=== PATIENT | female | born 1950 | race Hispanic/Latino ===

== ENCOUNTER 2019-06-16 19:52 | Inpatient (IN) | payer MEDICARE ==
[~2019-06-16] VITALS: Ht 149.9 cm; Wt 70.1 kg
--- OUTSIDE RECORDS SUMMARY | 2019-06-16 19:54 | XMS REPORT | Summary of Care ---
Author Author ANTONIO ADAMS M.D. 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 Unavailable Unavailable JILL ADAMS MD Unavailable Unavailable Unavailable Unavailable Functional Status Name Dates Details Functional status health issues are not documented Status: Name Dates Details Cognitive status health issues are not d ocumented Status: Problems Name Dates Details Need for hepatitis C screening test (V73 .89, Z11.59) Status: Active Need for pneumococcal vaccination (V03.8 2, Z23) Status: Active Need for shingles vaccine (V04.89, Z23) Status: Active Encounter for diabetic foot exam (250.00 , E11.9) Status: Active Flu vaccine need (V04.81, Z23) Status: Active Encounter for screening mammogram for br east cancer (V76.12, Z12.31) Status: Active Benign essential hypertension (401.1, I1 0) Status: Active Diabetes mellitus (250.00, E11.9) Status: Active Hyperlipidemia, unspecified hyperlipidem ia type (272.4, E78.5) Status: Active Colon polyp (211.3, K63.5) Status: Active Post-menopausal (V49.81, Z78.0) Status: Active Osteoporosis screening (V82.81, Z13.820) Status: Active Advance directive discussed with patient (V65.49, Z71.89) Status: Active Encounter for mini-mental status examina tion Status: Active Other [facility] (current) drug therapy ( V58.69, Z79.899) Status: Active Depression screen (V79.0, Z13.31) Status: Active Medications Name Dates Details Atorvastatin Calcium 20 MG Oral Tablet TAKE 1/2 TABLET BY MOUTH DAILY. Quantity: 15 SATTAR M.D., JILL * Start : 28-May-2018 Active Enalapril Maleate 10 MG Oral Tablet TAKE 1 TABLET BY MOUTH EVERY DAY * Quantity: 30 Refills: 0 SATTAR M.D., JILL * Start : 28-May-2018 Active metFORMIN HCl - 1000 MG Oral Tablet Take 1 tablet by mouth twice a day * Quantity: 60 Refills: 0 SATTAR Lulu., JILL * Start : 28-May-2018 Active Shingrix 50 MCG Intramuscular Suspension Reconstituted IM: 0.5 mL 2-dose series at 0 and 2 to 6 months * Quantity: 1 Refills: 1 LAMINR El, JILL * Start : 30-Dec-2017 Active Allergies and Adverse Reactions Name Dates Details Penicillins (Allergy) Status: Active Procedures Procedure Dates Details History of Tonsillectomy Completed History of Tubal Ligation Completed Immunization Name Dates Details Tdap on: Feb-2012 Tdap (Adacel) on: 20-Mar-2012 Pneumococcal polysaccharide vaccine, 23 valent on: 07-Oct-2016 Zoster (Zostavax) on: 06-Jan-2017 Fluzone Quadrivalent 0.5 ML Intramuscula r Suspension on: 06-Jan-2017 Fluzone Quadrivalent 0.5 ML Intramuscula r Suspension Lot #: [id number] on: 30-Dec-2017 Prevnar 13 Intramuscular Suspension Lot #: [id number] on: 30-Dec-2017 Family History Name Dates Details Family history of alcoholism (V17.0, Z81 .1) Status: Active Family history of diabetes mellitus (V18 .0, Z83.3) Status: Active Name Dates Details Family history of hyperlipidemia (V18.19 , Z83.438) Status: Active Family history of hypertension (V17.49, Z82.49) Status: Active Family history of cerebrovascular accide nt (CVA) (V17.1, Z82.3) Status: Active Social History Name Dates Details - Status: Name Dates Details Never smoker Vital Signs Date Test Result Details No Known Vitals to report Results Date Description Value Details Results not documented Plan of Care Name Dates Details Planned Observations Planned Goals not documented Interventions Provided Medication Changes* Atorvastatin Calcium 20 MG Oral Tablet - Renew * Enalapril Maleate 10 MG Oral Tablet - Renew * metFORMIN HCl - 1000 MG Oral Tablet - Renew Instructions Name Dates Details Instructions not documented Encounters Appointment; JILL ADAMS M.D. Encounter Diagnosis: Problem not documented On: 30-Dec-2017 10:00 Appointment; JILL ADAMS M.D. Encounter Diagnosis: Problem not documented On: 29-Jan-2018 9:00
--- OUTSIDE RECORDS SUMMARY | 2019-06-16 19:54 | XMS REPORT ---
Author Author [facility] Organization [facility] Address Unknown Phone Unavailable Care Team Providers Care Apprentice Cook Name Role Phone JILL ADAMS M.D. Unavailable Unavailable Problems Condition Name Condition Details Condition Category Status Onset Date Resolution Date Last Treatment Date Treating Clinician Comments Hyperlipidemia, unspecified hyperlipidemia type Hyperl ipidemia, unspecified hyperlipidemia type Problem Active Diabetes mellitus Diabetes mellitus Problem Active Benign essential hypertension Benign essential hypertension Problem Active Need for hepatitis C screening test Need for hepatitis C screeni ng test Problem Active Need for pneumococcal vaccination Need for pneumococcal vaccinat ion Problem Active Need for shingles vaccine Need for shingles vaccine Problem Active Flu vaccine need Flu vaccine need Problem Active Colon polyp Colon polyp Problem Active Post-menopausal Post-menopausal Problem Active Encounter for mini-mental status examination Encounter for mini-mental status examination Problem Active Advance directive discussed with patient Advance direc tive discussed with patient Problem Active Other care home (current) drug therapy Other met[facility] (curr ent) drug therapy Problem Active Depression screen Depression screen Problem Active Allergies, Adverse Reactions, Alerts Allergy Name Allergy Type Status Severity Reaction(s) Onset Date Inacti ve Date Treating Clinician Comments Penicillins drug allergy Active Medications Ordered Medication Name Filled Medication Name Start Date Stop Da te Current Medication? Ordering Clinician Indication Dosage Frequency Signature (SIG) Comments Components Atorvastatin Calcium 20 MG Oral Tablet Atorvastatin Calcium 20 MG Oral Tablet 2018-05-28 12:09:56 Yes JILL Montes.DNate QD TAKE 1/2 TABLET BY MOUTH DAILY. metFORMIN HCl - 1000 MG Oral Tablet metFORMIN HCl - 1000 MG Oral Tablet 2018-05-28 12:09:23 Yes JILL Montes.DNate 1 Q0 .5D Take 1 tablet by mouth twice a day Enalapril Maleate 10 MG Oral Tablet Enalapril Maleate 10 MG Oral Tablet 2018-05-28 12:07:19 Yes JILL Montes.DNate 1 QD TAKE 1 TABLET BY MOUTH EVERY DAY Shingrix 50 MCG Intramuscular Suspension Reconstituted Shingrix 50 MCG Intramuscular Suspension Reconstituted 2017-12-30 00:00:00 Yes JILL ADAMS M.D. IM: 0.5 mL 2-dose series at 0 and 2 to 6 months Immunizations Ordered Immunization Name Filled Immunization Name Date Sta tus Comments Prevnar 13 Intramuscular Suspension 2017-12-30 11:01:0 0 Completed Fluzone Quadrivalent 0.5 ML Intramuscular Suspension 2017-12-30 11:00:00 Completed Zoster (Zostavax) 2017-01-06 00:00:00 Completed Fluzone Quadrivalent 0.5 ML Intramuscular Suspension 2017-01-06 00:00:00 Completed Pneumococcal polysaccharide vaccine, 23 valent 2016-09 00:00:00 Completed Tdap (Adacel) 2012-03-20 00:00:00 Completed Tdap Unknown Completed Vital Signs Vital Name Observation Time Observation Value Comments BP Systolic 2018-01-29 08:59:00 117 mm[Hg] Location: [facility]; Position: Sitting BP Diastolic 2018-01-29 08:59:00 75 mm[Hg] Location: [facility]; Position: Sitting Height 2018-01-29 08:59:00 59 [in_us] Weight 2018-01-29 08:59:00 153.25 [lb_av] Temperature 2018-01-29 08:59:00 97.7 [degF] Method: Temp oral Heart Rate 2018-01-29 08:59:00 67 /min Respiration Rate 2018-01-29 08:59:00 16 /min BP Systolic 2017-12-30 10:09:00 110 mm[Hg] Location: [facility]; Position: Sitting BP Diastolic 2017-12-30 10:09:00 71 mm[Hg] Location: [facility]; Position: Sitting Height 2017-12-30 10:09:00 59 [in_us] Weight 2017-12-30 10:09:00 156 [lb_av] Temperature 2017-12-30 10:09:00 97.4 [degF] Method: Temp oral Heart Rate 2017-12-30 10:09:00 67 /min Respiration Rate 2017-12-30 10:09:00 16 /min Procedures and Interventions Procedure Date / Time Performed Performing Clinici an MA Bone Density DXA [employer] [id number] 2018-01-29 00:00:00 MA Digital Mammo Screening Lele [id number] 2018-01-05 00:00:00 [QLH] CBC (INCLUDES DIFF/PLT) 2017-12-30 00:00:00 [QLH] CMP W/EGFR 2017-12-30 00:00:00 [QLH] LIPID PANEL 2017-12-30 00:00:00 [QLH] HEMOGLOBIN A1c 2017-12-30 00:00:00 [QLH] TSH, 3RD GENERATION W/REFLEX TO FT4 2017-12-30 00:00:0 0 [QLH] MICROALBUMIN, RANDOM URINE (W/CREATININE) 2017-12-30 0 0:00:00 [QLH] HEPATITIS C ANTIBODY 2017-12-30 00:00:00 History of Tonsillectomy History of Tubal Ligation Encounters Start Date/Time End Date/Time Encounter Type Admission Type [facility] Care Department Encounter ID 2018-01-29 09:00:00 2018-01-29 09:00:00 Appointment; JILL ADAMS M.D. SATTAR, BEENA, M.D. [facility] [id number] 2017-12-30 10:00:00 2017-12-30 10:00:00 Appointment; JILL ADAMS M.D. SATTAR, BEENA, M.D. [facility] [id number] Results Test Description Test Time Test Comments Text Results Atomic Results Result Comments SCR MAMM BILATERAL ARTI CAD DIGITAL 2019-03-31 10:23:46 - SCR MAMM BILATERAL ARTI CAD DIGITALBILATERAL DIGITAL SCREENING MAMMOGRAM 3D/2D WITH CAD: 03/31/2019CLINICAL: Asymptomatic. Digital breast tomosynthesis was performed in addition to routine CC and MLO views. Current mammographic images were evaluated by either a [employer] M-Vu or a [employer] ImageChecker CAD (computer aided detection system). Comparison is made to exams dated 03/23/2018 mammogram - [facility], 10/30/2016 mammogram - [facility], and 11/23/2015 mammogram - b. The tissue of both breasts is heterogeneously dense. This may lower the sensitivity of mammography. There is mild vascular calcification in both breasts. There also is a benign calcification and an intramammary node in the right breast. Additionally, there are benign calcifications and intramammary nodes in the left breast. There is a stable benign-appearing asymmetry in the lateral left breast.No suspicious new mass, architectural distortion, malignant type calcification, or lymph node abnor mality detected. Breast architecture is stable compared to prior exams.IMPRESSION: BENIGNThere is no mammographic evidence of malignancy. Resume annual screening mammography in one year. Your patient's mammogram demonstrates that she has dense breast tissue. This can hide abnormalities. In compliance with [place] law ([employer] Law), your patient has been sent a letter which informs her of her breast density and notifies her that, depending on her individual risk factors for the development of breast cancer, she might benefit from additional screening tests such as ultrasound. Dense breast tissue, in and of itself, is a relatively common condition. Therefore, this information is not provided to cause undue concern, but rather to raise awareness and to promote discussion regarding the presence of other risk factors, in addition to dense breast tissue.Umesh Bear M.D. rb/:03/31/2019 10:23:46 Press Technician: Jessica Jansen FW, [facility] sent: BIRADS 1-2 Normal Mammogram BI-RADS: 2 Benign SCR MAMM BILATERAL ARTI CAD DIGITAL 2018-03-26 10:13:13 - SCR MAMM BILATERAL ARTI CAD DIGITALBILATERAL DIGITAL SCREENING MAMMOGRAM 3D/2D WITH CAD: 03/23/2018CLINICAL: Asymptomatic. Digital breast tomosynthesis was performed in addition to routine CC and MLO views. Current mammographic images were evaluated by either a [employer] M-Vu or a [employer] ImageChecker CAD (computer aided detection system). Comparison is made to exams dated 10/30/2016 mammogram - [facility] and 11/23/2015 mammogram - b. There are scattered fibroglandular tissues in both breasts. There is a benign intramammary node in the right breast. There also are benign calcifications, vascular calcification, and a stable asymmetry in the left breast. Additionally, there are benign intramammary nodes in the left breast. No suspicious new mass, architectural distortion, malignant type calcification, or lymph node abnormality detected. Breast architecture is stable compared to prior exams.IMPRESSION: BENIGNThere is no mammographic evidence of malignancy. Resume annual screening mammography in one year. Umesh Bear M.D. rb/:03/26/2018 10:13:13 Press Technician: Sanjuana Diaz FW, [facility] sent: BIRADS 1-2 Normal Mammogram BI-RADS: 2 Benign [[facility]] LIPID PANEL 2018-01-05 07:40:00 CHOLESTEROL, TOTAL; Normal (test code = 2093-3) 108 mg/dl <200 HDL CHOLESTEROL; Below Low Threshold (test code = 2085-9) 39 mg/ dl >50 TRIGLYCERIDES; Normal (test code = 2571-8) 141 mg/dl <150 LDL-CHOLESTEROL; Normal (test code = 31221-2) 47 {MG/DL ZACH} Reference range: <100 Desirable range <100 mg/dL for primary prevention; <70 mg/dL for patients with CHD or diabetic patients with > or = 2 CHD risk factors. LDL-C is now calculated using the Eh-Yosvany calculation, which is a validated novel method providing better accuracy than the Friedewald equation in the estimation of LDL-C. Eh SS et al. JORGE. 2013;310(19): 3738-2525 (http ://education.[employer].Sand 9/faq/KJT811) CHOL/HDLC RATIO (test code = CHOL/HDLC RATIO) 2.8 {CALC} <5 .0 NON HDL CHOLESTEROL (test code = NON HDL CHOLESTEROL) 69 {MG/DL ZACH} <130 For patients with diabetes plus 1 major ASCVD risk factor, treating to a non-HDL-C goal of <100 mg/dL (LDL-C of <70 mg/dL) is considered a therapeutic option. [[facility]] MICROALBUMIN, RANDOM URINE (W/CREATININE)2018-01-05 07:40:00* Test Item Value Reference Range Comments CREATININE, RANDOM URINE (test code = CREATININE, RANDOM URINE) 62 mg/dl 20-275 MICROALBUMIN (test code = MICROALBUMIN) 0.7 mg/dl Reference RangeNot established MICROALBUMIN/CREATININE RATIO, RANDOM UR INE (test code = MICROALBUMIN/CREATININE RATIO, RANDOM URINE) 11 {MCG/MG CRE} <30 The ADA defines ab normalities in albuminexcretion as follows: Category Result (mcg/mg creatinine) Normal <30Microalbuminuria 30-299 Clinical albuminuria > OR = 300 The ADA recommends that at least two of threespecimens collected within a 3-6 month period beabnormal before considering a patient to bewithin a diagnostic category. [QLH] CMP [id number] 07:40:00* Test Item Value Reference Range Comments GLUCOSE; Above High Threshold (test code = 1547-9) 154 mg/dl 65-99 Fasting reference interval For someone without known diabetes, a glucosevalue >125 mg/dL indicates that they may havediabetes and this should be confirmed with afollow- up test. UREA NITROGEN (BUN) (test code = UREA NITROGEN (BUN)) 11 mg/dl 7-25 CREATININE (test code = CREATININE) 0.56 mg/dl 0.50-0.99 For patients >49 years of age, the reference limitfor Creatinine is approximately 13% higher for peopleidentified as -Ivorian. eGFR NON- (test code = eGFR NON-WERO N ESTONIAN) 98 {ML/MIN/1.7} > OR = 60 eGFR (test code = eGFR ) 11 3 {ML/MIN/1.7} > OR = 60 BUN/CREATININE RATIO (test code = BUN/CREATININE RATIO) NOT APPL ICABLE 6-22 SODIUM (test code = SODIUM) 141 mmol/L 135-146 POTASSIUM (test code = POTASSIUM) 4.3 mmol/L 3.5-5.3 CHLORIDE (test code = CHLORIDE) 102 mmol/L 98-110 CARBON DIOXIDE (test code = CARBON DIOXIDE) 31 mmol/L 20-3 2 CALCIUM (test code = CALCIUM) 9.4 mg/dl 8.6-10.4 PROTEIN, TOTAL (test code = PROTEIN, TOTAL) 6.8 g/dl 6.1- 8.1 ALBUMIN (test code = ALBUMIN) 4.4 g/dl 3.6-5.1 GLOBULIN (test code = GLOBULIN) 2.4 {G/DL CALC} 1.9-3.7 ALBUMIN/GLOBULIN RATIO (test code = ALBUMIN/GLOBULIN RATIO) 1.8 {CALC} 1.0-2.5 BILIRUBIN, TOTAL; Normal (test code = 48670-4) 1.1 mg/dl 0 .2-1.2 ALKALINE PHSPHATASE (test code = ALKALINE PHSPHATASE) 50 u/l 33-130 AST; Normal (test code = 1916-6) 10 u/l 10-35 ALT; Normal (test code = 1742-6) 9 u/l 6-29 [QL] CBC (INCLUDES DIFF/PLT)2018-01-05 07:40:00* Test Item Value Reference Range Comments WHITE BLOOD CELL COUNT (test code = WHITE BLOOD CELL COUNT) 7.0 {Thousand/u} 3.8-10.8 RED BLOOD CELL COUNT (test code = RED BLOOD CELL COUNT) 4.53 {Million/uL} 3.80-5.10 HEMAGLOBIN; Normal (test code = 95895-3) 13.8 g/dl 11.7-15 .5 HEMATOCRIT; Normal (test code = 4544-3) 41.4 % 35.0-45. 0 MCV; Normal (test code = 787-2) 91.4 fL 80.0-100.0 MCHC; Normal (test code = 62022-2) 33.3 g/dl 32.0-36.0 RDW; Normal (test code = 788-0) 12.7 % 11.0-15.0 PLATELET COUNT; Normal (test code = 777-3) 335 {Thousand/u} 140- 400 MPV; Normal (test code = 10072-3) 11.2 fL 7.5-12.5 ABSOLUTE NEUTROPHILS (test code = ABSOLUTE NEUTROPHILS) 4186 {cells/uL} 3858-5844 ABSOLUTE LYMPHOCYTES (test code = ABSOLUTE LYMPHOCYTES) 1946 {cells/uL} 850-3900 ABSOLUTE MONOCYTES (test code = ABSOLUTE MONOCYTES) 476 {cells/u L} 200-950 ABSOLUTE EOSINOPHILS (test code = ABSOLUTE EOSINOPHILS) 329 {davian ls/uL} 15-500 ABSOLUTE BASOPHILS (test code = ABSOLUTE BASOPHILS) 63 {cells/uL } 0-200 NEUTROPHILS (test code = NEUTROPHILS) 59.8 % LYMPHOCYTES (test code = LYMPHOCYTES) 27.8 % MONOCYTES; Normal (test code = 63476-8) 6.8 % EOSINOPHILS; Normal (test code = 07326-8) 4.7 % BASOPHILS; Normal (test code = 79104-0) 0.9 % [[facility]] HEPATITIS C [id number] 07:40:00* Test Item Value Reference Range Comments HEPATITIS C ANTIBODY; Normal (test code = 62175-5) NON-REACTIVE NON-REACTIVE SIGNAL TO CUT-OFF (test code = SIGNAL TO CUT-OFF) 0.01 <1.00 [[facility]] TSH, 3RD GENERATION W/REFLEX TO [id number] 07:40:00* Test Item Value Reference Range Comments TSH, 3RD GENERATION W/REFLEX TO FT4 (yordan t code = TSH, 3RD GENERATION W/REFLEX TO FT4) 1.19 {MIU/L} 0.40-4.50 [[facility]] HEMOGLOBIN [id number] 07:40:00* Test Item Value Reference Range Comments HEMOGLOBIN A1c; Above High Threshold (test code = 4548-4) 6.1 {% of total} <5.7 For someone without known diabetes, a hemoglobin A1c value between 5.7% and 6.4% is consistent withprediabetes and should be confirmed with a follow-up test. For someone with known diabetes, a value <7%indicates that their diabetes is well controlled. [id number] should be individualized based on duration ofdiabetes, age, comorbid conditions, and otherconsiderations. This assay result is consistent with an increased riskof diabetes. Currently, no consensus exists regarding use ofhemoglobin A1c for diagnosis of diabetes for children. Positive Retinal Eye Exam (Diabetic)2016-09-17 06:00:00* Test Item Value Reference Range Comments Positive Diabetic Eye Screening (test code = Positive Diabetic Eye Screening) [id number]
[2019-06-16 21:05] LABS: BASOPHILS # (AUTO) 0.1 (0.0-0.1); BASOPHILS % 0.4 % (0.0-1.0); EOSINOPHILS # (AUTO) 0.3 (0.0-0.4); EOSINOPHILS % 2.2 % (0.0-6.0); HEMATOCRIT 38.2 % (34.2-44.1); HEMOGLOBIN 12.5 g/dL (12.0-16.0); LYMPHOCYTES # (AUTO) 2.1 (1.0-3.2); LYMPHOCYTES % 16.3 % (18.0-39.1); MEAN CORPUSCULAR HGB CONC 32.7 g/dL (31-35); MEAN CORPUSCULAR VOLUME 91.8 fL (81-99); MONOCYTES # (AUTO) 0.9 (0.2-0.8); MONOCYTES % 7.1 % (4.4-11.3); NEUTROPHILS # (AUTO) 9.3 (2.1-6.9); NEUTROPHILS % 72.4 % (38.7-80.0); PLATELET COUNT 448 x10e3/uL (140-360); RED BLOOD COUNT 4.16 x10e6/uL (3.6-5.1); RED CELL DISTRIBUTION WIDTH 13.2 % (11.7-14.4)
[2019-06-16 21:07] LABS: BILIRUBIN,URINE NEGATIVE (NEGATIVE); CLARITY,URINE HAZY (CLEAR); COLOR,URINE YELLOW (YELLOW); KETONES,URINE NEGATIVE (NEGATIVE); LEUKOCYTE ESTERASE ,URINE LARGE (NEGATIVE); NITRITE,URINE POSITIVE (NEGATIVE); PROTEIN,URINE DIPSTICK 1+ (NEGATIVE); URINE UROBILINOGEN 0.2 mg/dL (0.2 - 1)
[2019-06-16 21:18] LABS: BACTERIA,URINE MANY /HPF; EPITHELIAL CELLS,URINE FEW /LPF; WBC,URINE (MAN) 21-50 /HPF (0-5)
[2019-06-16 21:26] LABS: ALANINE AMINOTRANSFERASE 8 IU/L (0-55); ALBUMIN 3.2 g/dL (3.5-5.0); ALBUMIN/GLOBULIN RATIO 0.9 (0.8-2.0); ALKALINE PHOSPHATASE 52 IU/L (40-150); ANION GAP 16.1 mmol/L (8-16); BLOOD UREA NITROGEN 8 mg/dL (7-26); BUN/CREATININE RATIO 11 (6-25); CALCIUM 9.5 mg/dL (8.4-10.2); CARBON DIOXIDE 29 mmol/L (22-29); CHLORIDE 99 mmol/L (98-107); EST GLOMERULAR FILTRATION RATE > 60 ML/MIN (60-); GLUCOSE 113 mg/dL (74-118); POTASSIUM 4.1 mmol/L (3.5-5.1); SODIUM 140 mmol/L (136-145)
[2019-06-16] MEDS ORDERED: ONDANSETRON HCL INJ 2MG/ML 2ML 2 MG/ML VIAL IV STA (21:37)
[2019-06-16] MEDS ORDERED: MORPHINE SULFATE INJ 4 MG/ML INJ 1ML IV STA (21:37)
[2019-06-16] MEDS ORDERED: DIATRIZOATE MEGL/DIATRIZOA SOD 30 ML BTL PO ONE (21:59)
--- NOTE | 2019-06-16 22:37 | Diagnostic Imaging Report ---
EXAM: CT Abdomen and Pelvis WITH contrast INDICATION: ^LLQ pain COMPARISON: None. TECHNIQUE: Abdomen and pelvis were scanned utilizing a multidetector helical scanner from the lung base to the pubic symphysis after administration of IV contrast. Coronal and sagittal reformations were obtained. Routine protocol was performed. Scan was performed when during portal venous phase. IV CONTRAST: 100 mL of Isovue 370 ORAL CONTRAST: Water COMPLICATIONS: None RADIATION DOSE: Total DLP: 388 mGy*cm Estimated effective dose: (DLP x 0.015 x size factor) mSv CTDIvol has been reviewed. It is below the limits set by the Radiation Protocol Committee (RPC). Dose modulation, iterative reconstruction, and/or weight based adjustment of the mA/kV was utilized to reduce the radiation dose to as low as reasonably achievable. FINDINGS: LINES and TUBES: None. LOWER THORAX: Small hiatal hernia. HEPATOBILIARY: No focal hepatic lesions. No biliary ductal dilation. GALLBLADDER: Surgically absent. SPLEEN: No splenomegaly. PANCREAS: No focal masses or ductal dilatation. ADRENALS: No adrenal nodules KIDNEYS/URETERS: Kidneys enhance symmetrically. No hydronephrosis. No cystic or solid mass lesions. No stones. GI TRACT: Sigmoid diverticulosis. Short segment wall thickening of the sigmoid colon with subtle adjacent mesenteric fat stranding (image 65). Ill-defined 1.3 x 1.5 cm gas and fluid focus in the region of thickened colon wall (image 71). No evidence of bowel obstruction. PELVIC ORGANS/BLADDER: Wall thickening of the left posterolateral bladder, likely reactive. Prominent air within the urinary bladder. The uterus is grossly unremarkable. Small right ovarian cyst. LYMPH NODES: No lymphadenopathy. VESSELS: Unremarkable. PERITONEUM / RETROPERITONEUM: No free air or fluid. BONES: Unremarkable. SOFT TISSUES: Unremarkable. IMPRESSION: 1. Findings consistent with acute sigmoid diverticulitis. An ill-defined 1.3 x 1.5 cm fluid and gas collection in the region of thickened sigmoid wall may represent a small intramural abscess but is otherwise suboptimally evaluated due to lack of oral contrast administration. Consider follow-up imaging. 2. Presumably reactive wall thickening of the left posterolateral bladder wall. Air within the urinary bladder which may reflect introduced air, cystitis, or a colovesicular fistula. Signed by: Louis Lyn MD on 06/16/2019 10:34 PM
[2019-06-16] MEDS ORDERED: ONDANSETRON HCL INJ 2MG/ML 2ML 2 MG/ML VIAL IV PRN (23:30)
[2019-06-16] MEDS ORDERED: IOPAMIDOL 370 MG/ML 200 ML INFUS..BTL INJ ONE (23:36)
[2019-06-16] MEDS ORDERED: SODIUM CHLORIDE 0.9% 50ML 50 ML ONE (23:36)
[2019-06-16] MEDS ORDERED: MORPHINE SULFATE INJ 4 MG/ML INJ 1ML IV PRN (23:45)
[2019-06-17] VITALS (10 sets, daily range): BP systolic 102–115; BP diastolic 46–75
--- NOTE | 2019-06-17 00:59 | NUR ---
Received patient from ER via wheelchair. Patient in stable condition, no s/s of distress or c/o pain at this time. Bed locked and in low position, side rails up x3, call light placed within reach. Patient instructed to call for assistance if needed, verbalized understanding. All safety measures in place. Will continue to monitor.
[2019-06-17] MEDS: CIPROFLOXACIN 400 MG/D5W 200ML 200 ML IV SCH ×3 (01:13→16:37)
[2019-06-17] MEDS: SODIUM CHLORIDE 0.9% 1000ML 1,000 ML IV SCH ×4 (01:13→23:29)
[2019-06-17] MEDS ORDERED: PIOGLITAZONE HC45 MG PO (01:17)
[2019-06-17] MEDS ORDERED: VASOTEC10 M1 PO (01:17)
[2019-06-17] MEDS ORDERED: ATORVASTATIN CA20 MG PO (01:17)
[2019-06-17] MEDS ORDERED: LEVOFLOXACIN250 MG PO (01:17)
[2019-06-17] MEDS ORDERED: METRONIDAZOLE500 MG PO (01:17)
[2019-06-17] MEDS ORDERED: METFORMIN HCL500 M1 PO (01:17)
[2019-06-17] MEDS ORDERED: PIOGLITAZONE HC15 MG PO (01:18)
[2019-06-17] MEDS ORDERED: METFORMIN HCL500 MG PO (01:18)
[2019-06-17] MEDS ORDERED: GLUCOPHAGE1000 MG PO (01:51)
[2019-06-17] MEDS ORDERED: LEVAQUIN500 MG PO (01:51)
--- NOTE | 2019-06-17 02:04 | NUR ---
Dr. Adams on unit. Informed him about consult and patient's status. Per Dr. Adams, he will see patient later tomorrow.
[2019-06-17 06:31] LABS: BASOPHILS % 0.4 % (0.0-1.0); EOSINOPHILS # (AUTO) 0.3 (0.0-0.4); EOSINOPHILS % 3.9 % (0.0-6.0); HEMATOCRIT 32.7 % (34.2-44.1); HEMOGLOBIN 10.9 g/dL (12.0-16.0); LYMPHOCYTES # (AUTO) 1.6 (1.0-3.2); LYMPHOCYTES % 19.5 % (18.0-39.1); MEAN CORPUSCULAR HEMOGLOBIN 30.6 pg (28-32); MEAN CORPUSCULAR HGB CONC 33.3 g/dL (31-35); MEAN CORPUSCULAR VOLUME 91.9 fL (81-99); MONOCYTES % 11.4 % (4.4-11.3); NEUTROPHILS # (AUTO) 5.2 (2.1-6.9); PLATELET COUNT 345 x10e3/uL (140-360); RED BLOOD COUNT 3.56 x10e6/uL (3.6-5.1); RED CELL DISTRIBUTION WIDTH 12.9 % (11.7-14.4)
--- NOTE | 2019-06-17 07:02 | NUR ---
Bedside report given to day nurse. Patient awake and resting in bed, no s/s of distress at this time. All safety measures in place.
[2019-06-17 07:08] LABS: ALANINE AMINOTRANSFERASE 6 IU/L (0-55); ALBUMIN 2.7 g/dL (3.5-5.0); ALKALINE PHOSPHATASE 41 IU/L (40-150); ANION GAP 11.8 mmol/L (8-16); BLOOD UREA NITROGEN 6 mg/dL (7-26); BUN/CREATININE RATIO 9 (6-25); CALCIUM 8.6 mg/dL (8.4-10.2); CARBON DIOXIDE 29 mmol/L (22-29); CHLORIDE 102 mmol/L (98-107); CREATININE, SERUM 0.64 mg/dL (0.57-1.11); EST GLOMERULAR FILTRATION RATE > 60 ML/MIN (60-); GLUCOSE 132 mg/dL (74-118); POTASSIUM 3.8 mmol/L (3.5-5.1); SODIUM 139 mmol/L (136-145)
[2019-06-17] MEDS: METRONIDAZOLE 500MG/NS 100ML 100 ML IV SCH ×2 (15:18→21:21)
--- NOTE | 2019-06-17 17:37 | NUR ---
Patient's IV in right AC infiltrated. Patient had a new IV placed in her left AC 20 gauge. Patient had no issues or complaints.
--- NOTE | 2019-06-17 19:00 | NUR ---
Received bedside report from day nurse. Patient awake and sitting up in bed, no s/s of distress at this time. Bed locked and in low position, side rails up, call light placed within reach. Patient instructed to call for assistance if needed, verbalized understanding. All safety measures in place. Will continue to monitor.
--- NOTE | 2019-06-17 19:11 | Consultation ---
DATE OF CONSULTATION: 06/17/2019 HISTORY OF PRESENT ILLNESS: The patient is a 68-year-old female, presents with complaints of lower abdominal pain, which she has had for about 1 month. She also has had urinary tract infection and pneumaturia. She was supposed to have workup as an outpatient, but the pain became more severe, where she came to the emergency room, evaluation with CT of the abdomen and pelvis reveals diverticulitis with possible intramural abscess, but also air within the bladder. The patient gives a history of pneumaturia over the last month. She has not had similar symptoms prior to this. She has not had any fever, but she reports no weight loss. She has been having bowel movements. PAST MEDICAL HISTORY: Significant for diabetes, hypertension, hypercholesterolemia. MEDICATIONS: She has been on p.o. antibiotics as well as other medications, which include atorvastatin, Vasotec, Glucophage, Flagyl, and Actos. ALLERGIES: SHE HAS NO KNOWN ALLERGIES. PAST SURGICAL HISTORY: Previous surgeries include cholecystectomy, tonsillectomy, and tubal ligation. FAMILY HISTORY: Noncontributory. SOCIAL HISTORY: The patient does not smoke cigarettes, does not drink alcohol. REVIEW OF SYSTEMS: As stated above, otherwise was negative. PHYSICAL EXAMINATION: GENERAL: The patient is awake and alert, in no distress. VITAL SIGNS: At this time are normal. She is afebrile. She is not tachycardic. HEENT: Sclerae is nonicteric. NECK: Supple. No masses. LUNGS: Equal breath sounds are clear bilaterally. CARDIAC: Regular rate and rhythm with no murmur. ABDOMEN: Tender in the lower abdomen, greatest in left lower quadrant, there questionable signs of peritonitis, but localized. There is slight distention. There is no mass. EXTREMITIES: Have no edema. Pulses are palpable. NEUROLOGIC: Intact. LABORATORY TESTS: The white blood cell count on admission was 12.8, repeat is normal; hemoglobin 12.5, hematocrit 38, platelet count is normal. Chemistries were essentially normal. ASSESSMENT: A 68-year-old female with sigmoid diverticulitis and colovesical fistula. Recommend keeping the patient on IV antibiotics. We will consult with Urology, regarded for possible cystoscopy for further evaluation, but she likely will need surgery during this hospitalization. Once acute infection has been treated, she would need sigmoid colon resection with repair of the colovesical fistula. This was explained to the patient. Thank you for asking me to see Ms. Kebede. MD GABRIEL Dyson/LISA /[id number]
[2019-06-17] MEDS ORDERED: DEXTROSE 50% SYRINGE 50 ML IV PRN (21:00)
[2019-06-17] MEDS: ATORVASTATIN 20 MG TAB PO SCH (21:21)
[2019-06-17] MEDS: INSULIN LISPRO 100 UNIT/1 ML 3ML VIAL SQ SCH (21:21)
--- NOTE | 2019-06-17 21:57 | History and Physical ---
CHIEF COMPLAINT: Abdominal pain. HISTORY OF PRESENT ILLNESS: This is a 68-year-old female, who has a history of hyperlipidemia, hypertension, type 2 diabetes, who presented to the emergency room with complaints of abdominal pain in the left lower quadrant, ongoing for the last 3 weeks. The patient is a very poor historian when I interviewed her at bedside. She denies any nausea, vomiting, or any fever at home. No reports of any cough, congestion, or any other complaints. Denies any diarrhea or any constipation. Of note, she reports having similar abdominal pain several years ago and was told that she had some ovarian cyst. Did not need any further workup according to her. While here, imaging study is consistent with an acute diverticulitis with an abscess. The patient is seen and evaluated at bedside on the medical floor. She is currently doing well. She is stable. Her vital signs were stable during my evaluation. REVIEW OF SYSTEMS: Pertinent positive; left lower quadrant abdominal pain, decreased oral intake. The rest of 14-point review of systems have been reviewed with the patient and are negative. ALLERGIES: NO KNOWN DRUG ALLERGIES. HOME MEDICATIONS: Atorvastatin, enalapril, metformin, pioglitazone, metronidazole, Levaquin. PAST MEDICAL HISTORY: Hypertension, hyperlipidemia, type 2 diabetes, morbidly obese. PAST SURGICAL HISTORY: Reports none. FAMILY HISTORY: Hypertension and diabetes. SOCIAL HISTORY: No drugs. No alcohol. Does not smoke. Good social support. PHYSICAL EXAMINATION: VITAL SIGNS: Temperature 98.6, pulse 86, respiratory rate is 16, blood pressure 114/46, pulse ox 100% on room air. GENERAL: No acute distress. Alert and oriented x3. Cooperative on examination. HEENT: Head is normocephalic and atraumatic. Eyes; pupils are equal, round, and reactive to light bilaterally. Extraocular movements intact bilaterally. Throat; no evidence of erythema or exudates in the posterior pharynx. Has poor dentition. NECK: Supple. Good range of motion. PULMONARY: Clear to auscultation bilaterally. No wheezing, rales, or rhonchi. No crackles appreciated. CARDIOVASCULAR: Positive S1 and S2. No murmurs, rubs, or gallops appreciated. ABDOMEN: Soft, nondistended, and nontender to palpation. Bowel sounds present. MUSCULOSKELETAL: Strength is 5/5 throughout. No evidence of any muscle deficits on examination. No weakness appreciated. NEUROLOGIC: Cranial nerves II through XII grossly intact. No evidence of any neurological deficits on exam. SKIN: Intact. Warm to touch. Good cap refill. PSYCHIATRIC: Normal affect and mood. EXTREMITIES: No edema. Good range of motion throughout. LABORATORY DATA: Labs show white count was 12.7 on admission, now 8.3; hemoglobin 10.9; hematocrit is 33; and platelets of 345. Chemistry; sodium 139, potassium 3.8, chloride 102, bicarb 29, anion gap of 11, BUN is 6, creatinine is 0.64, glucose 132, calcium is 8.6, total bilirubin is 0.8, AST 11, ALT 6, alkaline phosphatase 41, total protein is 5.5, albumin 2.7. Urinalysis shows wbc's 21 to 50, many bacteria, 6 to 10 rbc's. Cultures were not sent. DIAGNOSTIC STUDIES: CT abdomen and pelvis with IV contrast shows findings consistent with acute sigmoid diverticulitis with an ill-defined with 1.3 x 1.5 cm fluid and gas collection in the region of the thickened sigmoid wall. There has been a small intramural abscess, but otherwise suboptimally evaluated due to lack of oral contrast. Presumably reactive wall thickening of the left posterolateral bladder wall and air within the urinary bladder, which may reflect introduced air, cystitis, or colovesicular fistula. IMPRESSION: 1. Acute diverticulitis with underlying diverticular abscess. 2. Leukocytosis with abdominal pain secondary to #1. 3. Concerns for colovesicular fistula. 4. Type 2 diabetes. 5. Hypertension. PLAN: At this time, the patient will continue to be on clear liquid diet, pain control, and IV antibiotics very broad with Cipro and Flagyl. I discussed this case with General Surgery. He feels that the patient may likely have a colovesicular fistula based on imaging studies. Urology has been consulted. The patient will likely need some intervention surgically in relation to her colovesicular fistula. GI has been consulted as well as ID. Continue with broad-spectrum IV antibiotic therapy. Put on insulin sliding scale very low dose due to her underlying diabetes. Resume antihypertensive medications. Continue with IV fluids. Put on Lovenox for DVT prophylaxis. Consultants involved; Urology, GI, General Surgery, and ID. MD NICOL Locke/MODL /[id number]
--- NOTE | 2019-06-17 22:35 | NUR ---
Dr. Taylor called to ask if lab still has patient's "dirty" urine specimen from last night's ER admission, and if so to run urine culture on that specimen. Spoke to lab and received confirmation that they still have specimen and will run urine culture as ordered by Dr. Taylor.
[2019-06-18] VITALS (7 sets, daily range): BP systolic 104–112; BP diastolic 57–64
[2019-06-18] MEDS: METRONIDAZOLE 500MG/NS 100ML 100 ML IV SCH ×3 (05:16→21:33)
[2019-06-18 06:02] LABS: BASOPHILS % 0.5 % (0.0-1.0); EOSINOPHILS # (AUTO) 0.4 (0.0-0.4); EOSINOPHILS % 4.7 % (0.0-6.0); HEMATOCRIT 35.6 % (34.2-44.1); HEMOGLOBIN 11.5 g/dL (12.0-16.0); LYMPHOCYTES % 25.8 % (18.0-39.1); MEAN CORPUSCULAR HEMOGLOBIN 30.2 pg (28-32); MEAN CORPUSCULAR HGB CONC 32.3 g/dL (31-35); MEAN CORPUSCULAR VOLUME 93.4 fL (81-99); MONOCYTES # (AUTO) 0.7 (0.2-0.8); MONOCYTES % 9.2 % (4.4-11.3); NEUTROPHILS # (AUTO) 4.5 (2.1-6.9); NEUTROPHILS % 58.2 % (38.7-80.0); PLATELET COUNT 373 x10e3/uL (140-360); RED BLOOD COUNT 3.81 x10e6/uL (3.6-5.1); RED CELL DISTRIBUTION WIDTH 13.2 % (11.7-14.4)
[2019-06-18 06:35] LABS: ANION GAP 10.7 mmol/L (8-16); BLOOD UREA NITROGEN < 5 mg/dL (7-26); CALCIUM 8.3 mg/dL (8.4-10.2); CARBON DIOXIDE 27 mmol/L (22-29); CHLORIDE 106 mmol/L (98-107); CREATININE, SERUM 0.62 mg/dL (0.57-1.11); EST GLOMERULAR FILTRATION RATE > 60 ML/MIN (60-); GLUCOSE 104 mg/dL (74-118); POTASSIUM 3.7 mmol/L (3.5-5.1); SODIUM 140 mmol/L (136-145)
[2019-06-18 06:38] LABS: BUN/CREATININE RATIO 8 (6-25)
--- NOTE | 2019-06-18 07:24 | NUR ---
PATIENT SITTING AT BED SIDE TALKING ON THE PHONE, NO DISTRESS NOTED. BED IN LOWER POSITION, CALL LIGHT AT REACH.
[2019-06-18] MEDS: INSULIN LISPRO 100 UNIT/1 ML 3ML VIAL SQ SCH ×4 (07:30→21:00)
[2019-06-18] MEDS: ENALAPRIL MALEATE 10 MG TAB PO SCH (09:00)
[2019-06-18] MEDS: CIPROFLOXACIN 400 MG/D5W 200ML 200 ML IV SCH ×2 (09:31→17:07)
[2019-06-18] MEDS: SODIUM CHLORIDE 0.9% 1000ML 1,000 ML IV SCH (10:36)
--- NOTE | 2019-06-18 12:01 | NUR ---
MD IN TO SEE PATIENT, NO NEW ORDER RECEIVED.
--- NOTE | 2019-06-18 20:20 | NUR ---
Received pt in bed awake a/o x3 no acute distress noted. Bed in lowest position, personal items and call light within reach.
[2019-06-18] MEDS: ATORVASTATIN 20 MG TAB PO SCH (21:00)
--- NOTE | 2019-06-18 21:11 | Consultation ---
DATE OF CONSULTATION: REASON FOR CONSULTATION: UTI. HISTORY OF PRESENT ILLNESS: This patient who is a 68-year-old [place] female for the last 3 weeks has been having some urgency and frequency. She also noted that there was stool coming in her urine. She went to see her doctor who gave her some antibiotic and she referred her to [facility] and GI, but she has not been feeling well. They were trying to do a CAT scan for the last 3 weeks. She could not be able to do it finally because she was not feeling too well, came to the emergency room where she is being admitted. CAT scan showed to have diverticulitis with possible intramural abscess with air in the bladder. She was seen by Surgery. She was seen by Urology. I am asked to see her. She is currently lying in bed comfortably. PAST MEDICAL HISTORY: Hypertension, hypercholesteremia, diabetes mellitus. PAST SURGICAL HISTORY: She has history of cholecystectomy, tonsillectomy, tubal ligation. ALLERGIES: NKA. SOCIAL HISTORY: There is no smoking, drug abuse, or alcohol abuse. FAMILY HISTORY: Unremarkable. REVIEW OF SYSTEMS: At the present time: HEENT: Negative. PULMONARY: Negative. CARDIAC: Negative. : Negative. GI: Negative. The patient is on Cipro and Flagyl. PHYSICAL EXAMINATION: GENERAL: She is currently alert, oriented, does not seem to be in acute distress. VITAL SIGNS: Stable, currently afebrile. HEENT: She is not icteric. NECK: Supple. CHEST: Clear. HEART: S1, S2. ABDOMEN: Soft. IMPRESSION: 1. Diverticulitis with abscess, concerned about fistula and communication with genitourinary tract. The patient has been seen by Surgery. 2. Diabetes mellitus followed by hypertension. Continue with antibiotic for the time being. We will follow. MD JESSI Foy/LISA /[id number]
[2019-06-19] VITALS (7 sets, daily range): BP systolic 86–123; BP diastolic 52–60
--- NOTE | 2019-06-19 00:56 | Progress Note ---
DATE: 06/18/2019 Medicine Progress Note SUBJECTIVE: The patient is doing extremely well. She is on a clear liquid diet and her diet will be advanced. General Surgery and Urology spoke with the patient. She will need surgery possibly on Friday to repair possible vesicular colon fistula. The patient understands the plan of care. PHYSICAL EXAMINATION: VITAL SIGNS: Temperature is 96.2, pulse 66, respiratory rate is 18, blood pressure is 106/59, and pulse ox 98% on room air. GENERAL: Not in acute distress. Alert and oriented x3. Cooperative on examination. HEENT: Head; normocephalic, atraumatic. Eyes; pupils are equal, round, and reactive to light bilaterally. Extraocular movements intact bilaterally. Throat; no evidence of erythema or exudates in the posterior pharynx. Has poor dentition. NECK: Supple. Good range of motion. PULMONARY: Clear to auscultation bilaterally. No wheezing, no rales, no rhonchi, no crackles appreciated. CARDIOVASCULAR: Positive S1 and S2. No murmurs, rubs, or gallops appreciated. ABDOMEN: Soft, nondistended, and nontender to palpation. Bowel sounds present. MUSCULOSKELETAL: Strength is 5/5 throughout. No evidence of any muscle deficits on examination. No weakness appreciated. NEUROLOGIC: Cranial nerve II through XII grossly intact. No evidence of any neurological deficits on exam. SKIN: Intact. Warm to touch. Good cap refill. PSYCHIATRIC: Normal affect and mood. EXTREMITIES: No edema. Good range of motion throughout. LABORATORY DATA: Show white count 7.6, hemoglobin 11.5, hematocrit 35.6, platelets of 373. Chemistry; sodium 140, potassium 3.7, chloride 106, bicarb 27, anion gap of 10, BUN is 5, creatinine is 0.62, glucose is 104, calcium is 8.3, total bilirubin is 0.8, AST is 11, ALT is 6, alkaline phosphatase is 41, albumin was 2.7. Urinalysis noted. MICROBIOLOGY: Urine cultures, still no growth to-date. IMAGING STUDIES: Nothing new. IMPRESSION: 1. Acute diverticulitis with underlying diverticular abscess with underlying leukocytosis. 2. Concerns for colovesicular fistula. 3. Type 2 diabetes. 4. Hypertension. PLAN: At this time, she is on clear liquid diet and diet was advanced per General surgery including pain control and IV antibiotics with Cipro and Flagyl. General Surgery and Urology spoke with the patient. She will likely need surgery possibly on Friday for further evaluation and management. As per ID, continue with IV antibiotic therapy and continue to monitor very closely. GI was consulted as well and they are going to be evaluating her closely as well. We will continue with sliding scale insulin for diabetes. Resume same antihypertensive medications. Stop IV fluids that the patient is eating well and to avoid any volume overload. Otherwise, we will continue same plan of care and monitor very closely. Lovenox for DVT prophylaxis. Consultants involved, Neurology, GI, General Surgery and ID. MD NICOL Locke/LISA /[id number]
--- NOTE | 2019-06-19 02:16 | Consultation ---
DATE OF CONSULTATION: 06/18/2019 Urology Consultation Note REASON FOR CONSULTATION: Colovesical fistula. HISTORY OF PRESENT ILLNESS: Devora Kebede is a 68-year-old woman with rare urinary tract infections in the past. She reports having both stress and urge type urinary incontinence. The patient had pains and infection and was admitted with a complicated urinary tract infection, was found to have colovesical fistula by CT and Urological consultation was subsequently sought. The patient denies previous urolithiasis or ever having a Urological evaluation. The patient noticed that she was urinating mucus and she also noted that she was urinating air. PAST MEDICAL AND SURGICAL HISTORY: 1. 5, para 4, 1. 2. Status post tonsillectomy. 3. Status post cholecystectomy. 4. Hypertension. 5. Diabetes mellitus. 6. Hypercholesterolemia. 7. Bilateral small ovarian cysts. CURRENT MEDICATIONS: Please refer to the MAR. ALLERGIES: NONE KNOWN. SOCIAL HISTORY: The patient denies smoking, ethanol, or drug use. She is retired from working in a warehouse. FAMILY HISTORY: Noncontributory to the active urological problems. REVIEW OF SYSTEMS: As discussed as above in the history of present illness and past medical history, otherwise negative for 12 systems. PHYSICAL EXAMINATION: GENERAL: Healthy-appearing 68-year-old woman, lying in bed, in no apparent distress. VITAL SIGNS: She is currently afebrile and her vital signs are currently stable. ABDOMEN: Soft, nondistended, nontender without costovertebral angle tenderness. Kidneys are not palpable without hepatosplenomegaly. No obvious evidence of hernia. For the remaining physical examination systems, please refer to the admission history and physical as well as the ERT sheet. LABORATORY STUDIES: White blood cell count upon presentation was elevated at 12,770, today it is 7650; hemoglobin is low at 11.5; and platelets are normal at 373,000. The patient's creatinine is normal at 0.62. Her calcium is slightly low at 8.3. Urinalysis is significant for pyuria and microhematuria with many bacteria. Urine culture is pending. CT scan of the abdomen and pelvis was done with intravenous contrast, it revealed a 1.5 cm gas and fluid focus in the region of the colon wall with apparent communication to thickening of the left posterolateral bladder with air in the bladder consistent with a fistula. ASSESSMENT: 1. Pneumaturia. 2. Complicated urinary tract infection. 3. Microhematuria. 4. Colovesical fistula. 5. Leukocytosis, improved. 6. Anemia. 7. Hypocalcemia. 8. Mixed type urinary incontinence. PLAN: 1. Intravenous antibiotics to cool off the patient's fistula. 2. I discussed this case with Dr. Boateng as well as with the patient that the plans are next week after giving the patient a course of intravenous antibiotics and take the patient to the operating room for cystoscopy with placement of temporary stents with colovesical fistula excision, sigmoid colectomy, and a closure of bladder wound. I informed the patient above the risks, benefits, and lack of alternatives from a urological standpoint and the fact that she will have a Miguel catheter for couple of weeks postoperatively. Thank you very much for involving us in the care of your patient. We will be able to follow along with you as well as an outpatient. Galo Taylor MD [place]/MODL /[id number] cc: Dino Snyder MD
[2019-06-19] MEDS: METRONIDAZOLE 500MG/NS 100ML 100 ML IV SCH ×3 (06:08→21:59)
--- NOTE | 2019-06-19 06:10 | NUR ---
Pt resting in bed, no s/sx distress, denies discomfort at this time. Pt states up to bathroom during night no diff. Will pass report on to on coming staff nurse
--- NOTE | 2019-06-19 07:00 | NUR ---
BEDSIDE SHIFT REPORT RECEIVED FROM THE HYSTER DRIVER RN. EDUCATED PT ABOUT FALL PRECAUTIONS. PT VERBALIZED UNDERSTANDING. CALL LIGHT WITH IN EASY REACH. INSTRUCTED PT TO USE CALL LIGHT FOR ALL THE NEEDS. BED IS LOW AND LOCKED. SIDE RAILS X2.PT DENIES NEEDS AT THIS TIME.
[2019-06-19] MEDS: INSULIN LISPRO 100 UNIT/1 ML 3ML VIAL SQ SCH ×4 (07:30→21:00)
[2019-06-19] MEDS: CIPROFLOXACIN 400 MG/D5W 200ML 200 ML IV SCH ×2 (10:00→16:07)
[2019-06-19] MEDS: ENALAPRIL MALEATE 10 MG TAB PO SCH (12:04)
--- NOTE | 2019-06-19 15:28 | Progress Note ---
DATE: 06/19/2019 Medicine Progress Note SUBJECTIVE: The patient is doing well today. She was ambulating in the room with no issues. PHYSICAL EXAMINATION: VITAL SIGNS: Temperature is 97.5, pulse 60, respiratory rate is 19, blood pressure 123/60, pulse ox 99% on room air. GENERAL: Not in acute distress. Alert and oriented x3. Cooperative on examination. HEENT: Head; normocephalic, atraumatic. Eyes; pupils are equal, round, and reactive to light bilaterally. Extraocular movements intact bilaterally. Throat; no evidence of erythema or exudates in the posterior pharynx. Has poor dentition. NECK: Supple. Good range of motion. PULMONARY: Clear to auscultation bilaterally. No wheezing, no rales, no rhonchi, no crackles appreciated. CARDIOVASCULAR: Positive S1 and S2. No murmurs, rubs, or gallops appreciated. ABDOMEN: Soft, nondistended, and nontender to palpation. Bowel sounds present. MUSCULOSKELETAL: Strength is 5/5 throughout. No evidence of any muscle deficits on examination. No weakness appreciated. NEUROLOGIC: Cranial nerve II through XII grossly intact. No evidence of any neurological deficits on exam. SKIN: Intact. Warm to touch. Good cap refill. PSYCHIATRIC: Normal affect and mood. EXTREMITIES: No edema. Good range of motion throughout. LABORATORY DATA: Show CBC stable. Hemoglobin is 11.5. Chemistries reviewed, stable. Urine culture shows gram-negative rods. IMPRESSION: 1. Acute diverticulitis with diverticular abscess with underlying leukocytosis. 2. Colovesicular fistula. 3. Type 2 diabetes. 4. Hypertension. PLAN: At this time, her diet has been advanced to a diabetic diet as per General Surgery. Continue with IV antibiotics, Cipro, and Flagyl. ID is monitoring antibiotics. General Surgery and Urology consulted for surgery likely on Friday. I will go ahead and consult with Cardiology for cardiac clearance. She will be on Lovenox for DVT prophylaxis. Consultants involved are Urology, GI, General Surgery, ID, and now Cardiology. MD NICOL Locke/LISA /[id number]
--- NOTE | 2019-06-19 19:20 | NUR ---
BEDSIDE SHIFT REPORT GIVEN TO THE CALL CENTER CONSULTANT RN. PT DENIED FURTHER NEEDS.
--- NOTE | 2019-06-19 19:29 | NUR ---
Received pt in bed awake on telephone with daughter. A/o x3 no c/o at this time. No s/sx of distress noted. Bed in low position call leo and personal items in reach. Pt and daughter question how long surgery might be and if daughter can be called after surgery for update. Will cont to mon
[2019-06-19] MEDS: ATORVASTATIN 20 MG TAB PO SCH (20:52)
[2019-06-20] VITALS (9 sets, daily range): BP systolic 102–131; BP diastolic 55–63
[2019-06-20] MEDS: METRONIDAZOLE 500MG/NS 100ML 100 ML IV SCH ×3 (05:53→20:36)
--- NOTE | 2019-06-20 07:20 | NUR ---
PATIENT IS AWAKE, ALERT, AND IN STABLE CONDITION WITH NO S/S OF RESPIRATORY DISTRESS- NO PAIN VOICED. JOSE R HOS APPLIED TO LOWER EXTREMITIES. CALL LIGHT IS WITHIN REACH- PATIENT INSTRUCTED TO CALL FOR ASSISTANCE.
[2019-06-20] MEDS: INSULIN LISPRO 100 UNIT/1 ML 3ML VIAL SQ SCH ×4 (07:30→20:33)
[2019-06-20] MEDS: METOPROLOL SUCCINATE 25 MG TAB XL PO SCH (08:55)
[2019-06-20] MEDS: CIPROFLOXACIN 400 MG/D5W 200ML 200 ML IV SCH (09:06)
[2019-06-20] MEDS ORDERED: PEG (High)/E-LYTE SOLN 4,000 ML BTL PO ONE (10:00)
[2019-06-20] MEDS: NEOMYCIN SULFATE 500 MG TAB PO SCH ×3 (11:23→23:25)
[2019-06-20] MEDS: CEFTRIAXONE SOD 2 GM/NS 100 ML 100 ML IV SCH (11:57)
[2019-06-20] MEDS ORDERED: ERYTHROMYCIN 500 MG TAB PO SCH (12:00)
--- NOTE | 2019-06-20 16:17 | Consultation ---
DATE OF CONSULTATION: 06/20/2019 Cardiology Consultation CONSULTING PHYSICIAN: Edmar Sahu M.D., Interventional Cardiology REASON FOR CONSULTATION: Perioperative evaluation. HISTORY OF PRESENT ILLNESS: A 68-year-old woman with a history of type 2 diabetes mellitus, non-insulin dependent; hypertension; and dyslipidemia, presents with history of recurrent urinary tract infections and colovesicular fistula and abscess. She has plans for surgery this upcoming week. We have been asked to evaluate from a cardiovascular standpoint. The patient denies any chest discomfort or dyspnea at rest or with exertion. She reports good exercise capacity, able to ambulate at a fast pace three blocks and go up two flights of stairs without any exertional symptoms. She denies any prior cardiovascular history. Echocardiogram was reviewed and remarkable for preserved left ventricular systolic function without significant valvular abnormalities. The patient denies any prior history of kidney disease or stroke. REVIEW OF SYSTEMS: Twelve-system review negative except for as noted above. ALLERGIES: NO KNOWN DRUG ALLERGIES. SOCIAL HISTORY: Negative for smoking, alcohol, or drugs. FAMILY HISTORY: Noncontributory. PHYSICAL EXAMINATION: VITAL SIGNS: Temperature 97.7, heart rate 77, blood pressure 125/60, respiratory rate 19, and O2 saturation 97%. BMI 31. GENERAL: In no acute distress, alert. NECK: No JVD. CHEST: Clear to auscultation. CARDIOVASCULAR: Regular rate and rhythm. Normal S1, S2. No S3, no S4. No murmurs. No rubs. No heaves. ABDOMEN: Soft. Nontender. EXTREMITIES: No edema. CARDIOVASCULAR MEDICATIONS: Reviewed. 1. Enalapril 10 mg daily. 2. Metoprolol succinate 12.5 mg daily for cardiovascular risk optimization. 3. Atorvastatin 10 mg at bedtime. STUDIES: Reviewed. Sodium 140, potassium 3.7, chloride 106, bicarbonate 27, BUN less than 5, creatinine 0.6, and glucose 104. White blood cell 7.6, hemoglobin 11.5, and platelets 373. ASSESSMENT: 1. A 68-year-old woman presents for colovesicular fistula and abscess surgery in the setting of recurrent urinary tract infection. 2. History of diabetes mellitus, non-insulin dependent, type 2. 3. Hypertension. 4. Dyslipidemia. RECOMMENDATIONS: 1. Continue metoprolol for cardiovascular risk optimization and blood pressure control. 2. No unstable cardiac conditions identified. 3. RCRI estimated risk of 6% for 30-day heart attack, cardiac arrest, or with noncardiac surgery. MD ALBINO Meng/MODL /[id number]
--- NOTE | 2019-06-20 18:23 | Progress Note ---
DATE: 06/20/2019 Medicine Progress Note SUBJECTIVE: The patient is doing well today with no complaints. She is scheduled for surgery tomorrow by Urology and General Surgery. She has been cardiac cleared by Dr. Castillo, Cardiology. PHYSICAL EXAMINATION: VITAL SIGNS: Temperature 96.5, pulse 74, respiratory rate is 20, blood pressure 131/60, pulse ox 98% on room air. GENERAL: Not in acute distress. Alert and oriented x3. Cooperative on examination. HEENT: Head; normocephalic, atraumatic. Eyes; pupils are equal, round, and reactive to light bilaterally. Extraocular movements intact bilaterally. Throat; no evidence of erythema or exudates in the posterior pharynx. Has poor dentition. NECK: Supple. Good range of motion. PULMONARY: Clear to auscultation bilaterally. No wheezing, no rales, no rhonchi, no crackles appreciated. CARDIOVASCULAR: Positive S1 and S2. No murmurs, rubs, or gallops appreciated. ABDOMEN: Soft, nondistended, and nontender to palpation. Bowel sounds present. MUSCULOSKELETAL: 5/5 strength appropriate. NEUROLOGIC: No evidence of any neurological deficits on exam. SKIN: Intact. Warm to touch. Good cap refill. PSYCHIATRIC: Normal affect and mood. EXTREMITIES: No edema. Good range of motion throughout. LABORATORY DATA: Labs show white count 7.6, hemoglobin 11.5, hematocrit is 35.6, platelets of 373. Chemistry, none. MICROBIOLOGY: Urine cultures were noted. IMPRESSION: 1. Acute diverticulitis with diverticular abscess with underlying leukocytosis. 2. Colovesicular fistula. 3. Type 2 diabetes. 4. Hypertension. PLAN: She is now going to be n.p.o. She is getting GoLYTELY for preparation for surgery tomorrow. She is still on IV antibiotics, Cipro and Flagyl, being monitored by ID. Surgery scheduled for tomorrow. Cardiology consulted for clearance. 2D echos shows very good EF. Lovenox for DVT prophylaxis. Consultants involved Urology, GI, General surgery, ID, and Cardiology. MD NICOL Locke/LISA /[id number]
--- NOTE | 2019-06-20 19:11 | NUR ---
PATIENT IS IN STABLE CONDITION WITH NO S/S OF RESPIRATORY DISTRESS- NO PAIN VOICED. PATIENT AWARE SHE WILL BE NPO AT [facility] FOR PROCEDURE TOMORROW. CALL LIGHT IS WITHIN REACH, PATIENT INSTRUCTED TO CALL FOR ASSISTANCE. BEDSIDE SHIFT REPORT GIVEN TO ONCOMING NURSE.
[2019-06-20] MEDS: ATORVASTATIN 20 MG TAB PO SCH (20:39)
[2019-06-21] VITALS (11 sets, daily range): BP systolic 110–135; BP diastolic 53–63
[2019-06-21] MEDS: METRONIDAZOLE 500MG/NS 100ML 100 ML IV SCH ×3 (05:19→22:00)
--- NOTE | 2019-06-21 07:15 | NUR ---
BSSR GIVEN TO DREW RN, PATIENT AOX4, SITTING ON EDGE OF BED, SKIN CLEANSED AND PREP PER PROCOTOL FOR SURGICAL PROCEDURE IN operating room for cystoscopy with placement of temporary stents with colovesical fistula excision, sigmoid colectomy, and a closure of bladder wound. RN MADE AWARE THAT CONSENTS FOR BOTH PROCEDURE IN CHART, RIGHT LOWER FOREARM IV PATENT, NO S/SX OF INFILTRATION NOTED, NPO AFTER MIDNIGHT FOR PROCEDURE CALL LIGHT WITHIN REACH
[2019-06-21] MEDS: INSULIN LISPRO 100 UNIT/1 ML 3ML VIAL SQ SCH ×4 (07:30→21:30)
[2019-06-21 08:19] LABS: BASOPHILS % 0.5 % (0.0-1.0); EOSINOPHILS # (AUTO) 0.2 (0.0-0.4); EOSINOPHILS % 2.3 % (0.0-6.0); HEMATOCRIT 39.1 % (34.2-44.1); HEMOGLOBIN 12.7 g/dL (12.0-16.0); LYMPHOCYTES # (AUTO) 1.5 (1.0-3.2); LYMPHOCYTES % 18.1 % (18.0-39.1); MEAN CORPUSCULAR HEMOGLOBIN 30.5 pg (28-32); MEAN CORPUSCULAR HGB CONC 32.5 g/dL (31-35); MONOCYTES # (AUTO) 0.6 (0.2-0.8); NEUTROPHILS % 71.2 % (38.7-80.0); PLATELET COUNT 394 x10e3/uL (140-360); RED BLOOD COUNT 4.16 x10e6/uL (3.6-5.1); RED CELL DISTRIBUTION WIDTH 13.5 % (11.7-14.4)
[2019-06-21 08:23] LABS: ANION GAP 14.6 mmol/L (8-16); BLOOD UREA NITROGEN < 5 mg/dL (7-26); CALCIUM 8.9 mg/dL (8.4-10.2); CARBON DIOXIDE 25 mmol/L (22-29); CHLORIDE 107 mmol/L (98-107); CREATININE, SERUM 0.68 mg/dL (0.57-1.11); EST GLOMERULAR FILTRATION RATE > 60 ML/MIN (60-); GLUCOSE 146 mg/dL (74-118); POTASSIUM 3.6 mmol/L (3.5-5.1); SODIUM 143 mmol/L (136-145)
[2019-06-21 08:28] LABS: BUN/CREATININE RATIO 7 (6-25)
[2019-06-21] MEDS: METOPROLOL SUCCINATE 25 MG TAB XL PO SCH (08:45)
--- NOTE | 2019-06-21 09:55 | NUR ---
ASSESSMENT: Spiritual distress Pt anxious about upcoming procedure. Pt states she has a "liver biopsy" scheduled. Pt states her illness is much worse than originally thought. Pt states she has 3 sons who are supportive. Pt states she has been "praying for strength." Intervention: Provided hospitality and empathic listening. Facilitated identification of emotions. Provided prayer. Pt requested follow-up alum plant supervisor visits. Outcome: Pt expressed appreciation for visit. Grounds Foreman provided information on how to reach alum plant supervisor, if needed. MARTIR May Spiritual Care Department O: [phone] Addendum: 06/21/19 at 1119 by Martir Flowers CHAP CORRECTION: The above note was NOT FOR THIS PATIENT. [facility]: [phone]
--- NOTE | 2019-06-21 09:55 | NUR ---
ASSESSMENT: Spiritual concern Pt anxious about upcoming procedure. Intervention: Provided hospitality and empathic listening. Facilitated identification of emotions. Provided prayer. visits. Receiving Coordinator provided information on how to reach crown assembly machine set up mechanic, if needed. Outcome: Pt expressed appreciation for visit. No need to follow at this time. MARQUISE PENNINGTON Receiving Coordinator Spiritual Care Department O: [phone]
[2019-06-21] MEDS: CEFTRIAXONE SOD 2 GM/NS 100 ML 100 ML IV SCH (10:55)
--- NOTE | 2019-06-21 11:30 | Progress Note ---
DATE: 06/21/2019 Cardiology Progress Note SUBJECTIVE: No complaints today. Denies chest pain or shortness of breath. OBJECTIVE: VITAL SIGNS: Temperature 96.9, heart rate 95, blood pressure 133/60, respiratory rate 20, O2 saturation 99%, BMI 31. GENERAL: No acute distress. Alert. NECK: No JVD. CHEST: Clear to auscultation. CARDIOVASCULAR: Regular rate and rhythm . Normal S1, S2. ABDOMEN: Soft. Bowel sounds positive. EXTREMITIES: No edema. CARDIOVASCULAR MEDICATIONS: Reviewed. Metoprolol succinate 12.5 mg daily, atorvastatin 20 mg at bedtime. STUDIES: Reviewed. Sodium 143, potassium 3.6, chloride 107, bicarbonate 25, BUN less than 5, creatinine 0.68, glucose 146. White blood cells 8.4, hemoglobin 12.7, platelets 394. AST 11 and ALT 6, alkaline phosphatase 41, total bilirubin 0.8. ASSESSMENT AND PLAN: A 68-year-old woman with rectovesical fistula and abscess with recurrent UTIs. Plan for surgical repair and has hypertension, diabetes, dyslipidemia. Estimated RCRI 30-day risk for mortality, cardiac arrest and AK 6%. Perioperative beta-blockers advised. Continue statin. No unstable cardiac conditions identified. MD ALBINO Meng/LISA /[id number]
--- NOTE | 2019-06-21 12:06 | Progress Note ---
DATE: Infectious Disease Progress Note SUBJECTIVE: The patient is seen and evaluated, available labs and notes reviewed. Discussed with Dr. Gavin and discussed with the nurse. The patient is seen and evaluated. Notes reviewed. REVIEW OF SYSTEMS: No nausea, no vomiting, no fever or chills. No chest pain or shortness of breath. No headache. No dysuria. No polyuria. OBJECTIVE: VITAL SIGNS: Temperature 96.9, pulse 95, respirations 20, and blood pressure 133/60. GENERAL: Alert and oriented, in no acute distress. CV: S1 and S2. CHEST: Equal expansion. Clear to auscultation. No acute distress. ABDOMEN: Soft. There is some discomfort in left lower quadrant with positive bowel sounds. HEENT: Moist. No pallor. No JVD. EXTREMITIES: Moves all. No significant edema. MEDICATIONS: Medication list reviewed as far as Infectious Disease point of view. The patient is on Rocephin and Flagyl based on culture and sensitivity. MICROBIOLOGY: Urine culture showed E. coli. LABORATORY STUDIES: White count of 8.43, hemoglobin 12.7, platelet 394. Sodium 143, potassium 3.6, creatinine 0.68. Serology: COVID-19 PCR from 06/19/2019 is pending. Clinically, the patient is asymptomatic with no fever, no cough, no sweats or chills. RADIOLOGY: No new radiology studies available. ASSESSMENT AND PLAN: 1. Acute sigmoid diverticulitis with colovesical fistula. 2. Abscess. 3. Urinary tract infection. 4. Diabetes mellitus. 5. Hypertension. Plan to have cystoscopy and stent placement and also sigmoid colon resection today all at the same time. We continue the antibiotics as mentioned above. Monitor patient clinically, follow with the labs, clinically, seems to be in no acute distress. Neck is oriented x3. Discussed with Dr. aGvin. Please refer to chart for more information. MD JESSI Foy/LISA /[id number]
--- NOTE | 2019-06-21 12:43 | NUR ---
Pt being transferred to OR at this time for procedures with Dr. Boateng and Dr. Taylor. Pt is aox3 and able to verbalize needs at time of transfer. 0 s/s of acute distress noted at time of transfer. Family notified of transfer.
[2019-06-21] MEDS ORDERED: IOPAMIDOL 300MG/ML 50ML INFUS..BTL IV ONE (13:03)
[2019-06-21] MEDS ORDERED: ACETAMINOPHEN 1000 MG/100 ML IV PRN (14:45)
[2019-06-21] MEDS ORDERED: NALOXONE HCL INJ 0.4 MG/ML AMP IV PRN (14:45)
[2019-06-21] MEDS ORDERED: KETOROLAC TROMETHAMINE 30 MG/ML VIAL IV PRN (14:45)
[2019-06-21] MEDS ORDERED: ONDANSETRON HCL INJ 2MG/ML 2ML 2 MG/ML VIAL IV PRN (14:45)
--- NOTE | 2019-06-21 14:51 | Progress Note ---
DATE: Medicine Progress Note SUBJECTIVE: I cannot evaluate the patient. The patient already went to the OR for surgery by Urology and General Surgery. Apparently, no overnight events. She was doing well with no complaints. She was cleared for surgery by Cardiology. PHYSICAL EXAMINATION: VITAL SIGNS: Temperature is 98, pulse 97, respiratory rate is 19, blood pressure 135/63, and pulse ox 98% on room air. The patient is currently in the OR. I am unable to perform this examination. LABORATORY DATA: Show white count 8.4, hemoglobin 12, hematocrit is 39, and platelets of 394. Chemistry; sodium 143, potassium 3.6, chloride 107, bicarb 25, anion gap of 14, , creatinine is 0.68, and calcium 8.9. MICROBIOLOGY: Urine culture noted to be E. coli. IMAGING STUDIES: Nothing new. IMPRESSION: 1. Acute diverticulitis with diverticular abscess with underlying leukocytosis. 2. Colovesicular fistula. 3. Type 2 diabetes. 4. Hypertension. PLAN: At this time, she is currently in the OR to undergo surgery and to be evaluated by Urology and General Surgery. We will continue with same IV antibiotic therapy. Continue with postop care with pain control. Diet per surgeons. Get a.m. labs. Consultants involved Urology, GI, General Surgery, ID, and Cardiology. MD NICOL Locke/LISA /[id number]
[2019-06-21] MEDS ORDERED: MORPHINE SULFATE INJ 4 MG/ML INJ 1ML ONE (15:15)
[2019-06-21] MEDS: MORPHINE SULFATE 1 MG/ML 30ML PCA IV PRN (15:20)
--- NOTE | 2019-06-21 15:50 | NUR ---
Pt received from OR at this time. Pt is awake and able to verbalize needs. Pt has surgical incision to midlower abdomen with is covered with island dressing. Dressing is dry and intact. Pt was started on ORDNANCE OFFICER pump with Morphine and will continue on the floor. Miguel in place with light yellow urine noted. SCDs in place to bilateral lower ext. Pt is to continue to be NPO. Family notified of pt arrival back to unit.
[2019-06-21] MEDS: DEXTROSE 5%/LACTATED RINGERS 1,000 ML IV SCH (16:04)
[2019-06-21] MEDS ORDERED: LIDOCAINE HCL 2% LOCAL INJ 5 ML SDV VIAL INJ ONE (18:40)
[2019-06-21] MEDS ORDERED: PROPOFOL IV EMULSION 10 MG/ML 50 ML VIAL ONE (18:40)
[2019-06-21] MEDS ORDERED: SEVOFLURANE INHAL SOLN 250 ML PEN BTL ONE (18:40)
[2019-06-21] MEDS ORDERED: NEOSTIGMINE 1 MG/ML 10ML VIAL ONE (18:40)
[2019-06-21] MEDS ORDERED: ACETAMINOPHEN 1000 MG/100 ML IV ONE (18:40)
[2019-06-21] MEDS ORDERED: GLYCOPYRROLATE INJ 0.2 MG/ML VIAL ONE (18:40)
[2019-06-21] MEDS ORDERED: ROCURONIUM BROMIDE 10 MG/ML 5ML VIAL IV ONE (18:40)
[2019-06-21] MEDS ORDERED: ONDANSETRON HCL INJ 2MG/ML 2ML 2 MG/ML VIAL ONE (18:40)
[2019-06-21] MEDS ORDERED: FENTANYL CITRATE/PF 100MCG/2 ML INJ ONE (18:43)
[2019-06-21] MEDS ORDERED: MIDAZOLAM HCL 2 MG/2 ML VIAL ONE (18:43)
--- NOTE | 2019-06-21 19:47 | Operative Report ---
DATE OF PROCEDURE: 06/21/2019 SURGEON: Lance Boateng MD PREOPERATIVE DIAGNOSIS: Sigmoid diverticulitis with colovesical fistula. POSTOPERATIVE DIAGNOSIS: Sigmoid diverticulitis with colovesical fistula. PROCEDURE: Sigmoid colon resection with repair of colovesical fistula. RESIDENT CARE AIDE: None. ANESTHESIA: General. INDICATIONS AND FINDINGS: The patient is a 68-year-old female, who presented with complaints of lower abdominal pain for about one month with pneumaturia. Workup revealed colovesical fistula secondary to diverticulitis. At Surgery, the patient had inflamed segment in the mid and distal sigmoid colon with colon adherent to the bladder. There was a fistula opening with the size of the fistula being about 1 cm from the colon to the bladder. DESCRIPTION OF PROCEDURE: After adequate general endotracheal anesthesia, the patient first had cystoscopy and placed ureteral stents by Urology, Dr. Taylor. Once this was completed with the patient in supine position, the abdomen was prepped and draped in sterile fashion with ChloraPrep solution. A lower midline incision was made. The peritoneal cavity was entered. Initial exploration of the colon adherent to the dome of the bladder. The sigmoid colon was mobilized by dividing peritoneal attachments. There were some adhesions of the omentum in the area, which were lysed using electrocautery. The small bowel appeared normal. The colon in the proximal area of the fistula was not inflamed nor was the colon distal to the fistula. The colon was from the bladder using primarily sharp dissection using electrocautery the fistula. There was about 1 cm opening in the colon as well as 1 cm opening into the bladder. Once the two were , the bladder was repaired, details of which were covered in Dr. Taylor's note. Once he was completed with his portion, the colon was resected proximally in the area of inflammation and divided with a VANE stapler, mesentery divided with LigaSure device and then the distal colon divided with a VANE stapler, resecting about 12 cm of colon. The care was taken not to injure the ureters, which were palpable with ureteral stents in place. The anastomosis was made between the proximal and distal colon with a VANE stapler and TL60 stapler. The pericolonic fat was sutured over the staple lines using 3-0 silk and omentum was sutured over the bladder repair using 3-0 Vicryl. The peritoneal cavity was irrigated with saline, inspected for hemostasis, which was seen to be adequate. The midline fascia was then closed running suture of #1 PDS. Subcutaneous tissue was irrigated with saline. Skin was closed with madalyn. Sterile dressing was applied. The patient tolerated the procedure well. Estimated blood loss was 100 mL. There were no complications. All counts were correct, and the patient was taken to the recovery room in satisfactory condition. MD GABRIEL Dyson/MODL /[id number] cc: MD Galo Locke MD
--- NOTE | 2019-06-21 20:00 | NUR ---
Received pt in bed awake alert c/o discomfort 03/29 No s/sx of acute distress. Bed in low position call light and personal items within reach. Dsg to midline abd clean dry and intact. Miguel to DD below bladder. STITCHER SPECIAL MACHINE control within patient reach. IVF infusing no diff. Will cont to mon
[2019-06-21] MEDS: ATORVASTATIN 20 MG TAB PO SCH (21:00)
--- NOTE | 2019-06-21 22:08 | Operative Report ---
DATE OF PROCEDURE: 06/21/2019 SURGEON: Galo Taylor MD PREOPERATIVE DIAGNOSES: 1. Colovesical fistula. 2. Urinary tract infections. 3. Microscopic hematuria. POSTOPERATIVE DIAGNOSES: 1. Colovesical fistula. 2. Urinary tract infections. 3. Microscopic hematuria. 4. Grade 3 cystocele. 5. . 6. Atrophic (senile) vaginitis. OPERATION PERFORMED: 1. Cystourethroscopy with bilateral ureteral catheterization, placement of temporary stents, and retrograde ureteropyelography (separate procedure performed for the urinary tract infections and hematuria). 2. Interpretation of retrograde ureteropyelography. 3. Supervision of fluoroscopy, no radiologist present. 4. closure of bladder hole. ANESTHESIA: General. CO-SURGEON: Dr. Lance Boateng. COMPLICATIONS: None. CLINICAL SUMMARY: Devora Kebede is a 68-year-old woman with the above preoperative diagnoses. She is brought for the above procedures. She is aware of the risks of bleeding, infection, injury to adjacent structures, need for additional procedures, and elected to proceed. OPERATIVE PROCEDURE IN DETAIL: Informed consent was verified. Devora Kebede was properly identified, taken to the operating room, placed on the operating table in supine position, and anesthesia was uneventfully began. The patient was then carefully and gently repositioned into dorsal lithotomy position with all pressure points well padded. Her genitalia were prepared and draped in usual sterile fashion. A 22.5-Liberian drainage cystoscope sheath with obturator in place was atraumatically inserted into the patient's urethra and the bladder was drained. Panendoscopy of the bladder revealed mild inflammation throughout the bladder. There was the fistulous tract present in the posterior bladder wall at the junction of the lateral wall on the left hand side. Once could see mucus and stool-like material emerging that lateral wall. There were no suspicious lesions, no more tumors. A 5-Liberian open-ended catheters were then placed in each ureter . The cystoscope was then withdrawn. A 24-Liberian Miguel catheter was placed. It was irrigated to and fro to ensure it worked properly. Contrast was injected in retrograde fashion bilaterally into the 5-Liberian open-ended catheter. The open-ended catheters were then placed with the special connector and integrated into the drainage system. Interpretation of retrograde ureteropyelography contrast was instilled in retrograde fashion bilaterally. There were no tumors. There were no stones. There was no hydronephrosis. Ureteral catheters were in excellent position for surgery. The patient was then carefully and gently repositioned in supine position. Her abdomen was then prepared and draped in the usual sterile fashion. A midline incision was made by the General Surgery Service. Exploration was performed. Sigmoid colon was identified. It was from the bladder where the fistulous tract was larger and was appreciated cystoscopically. We then proceeded to oversew the hole in the bladder utilizing 2-0 chromic suture. The case was then turned back to the General Surgery Service for completion of sigmoid colectomy. There were no complications to the urological portion of procedure. The patient tolerated the procedure well. We will plan on following the patient up during her immediate postoperative course and of course on long-term basis. Galo Taylor MD [place]/LISA /[id number]
[2019-06-22] VITALS (8 sets, daily range): BP systolic 98–134; BP diastolic 51–81
[2019-06-22] MEDS: METRONIDAZOLE 500MG/NS 100ML 100 ML IV SCH ×3 (06:35→21:03)
[2019-06-22] MEDS: DEXTROSE 5%/LACTATED RINGERS 1,000 ML IV SCH ×2 (06:35→07:45)
[2019-06-22 06:48] LABS: BASOPHILS % 0.2 % (0.0-1.0); EOSINOPHILS % 0.1 % (0.0-6.0); HEMATOCRIT 35.6 % (34.2-44.1); HEMOGLOBIN 11.2 g/dL (12.0-16.0); LYMPHOCYTES # (AUTO) 1.3 (1.0-3.2); LYMPHOCYTES % 9.4 % (18.0-39.1); MEAN CORPUSCULAR HEMOGLOBIN 29.9 pg (28-32); MEAN CORPUSCULAR HGB CONC 31.5 g/dL (31-35); MEAN CORPUSCULAR VOLUME 94.9 fL (81-99); MONOCYTES # (AUTO) 0.9 (0.2-0.8); NEUTROPHILS # (AUTO) 11.1 (2.1-6.9); NEUTROPHILS % 82.7 % (38.7-80.0); PLATELET COUNT 327 x10e3/uL (140-360); RED BLOOD COUNT 3.75 x10e6/uL (3.6-5.1); RED CELL DISTRIBUTION WIDTH 13.6 % (11.7-14.4)
[2019-06-22 07:26] LABS: ANION GAP 9.6 mmol/L (8-16); BLOOD UREA NITROGEN < 5 mg/dL (7-26); CALCIUM 8.1 mg/dL (8.4-10.2); CARBON DIOXIDE 26 mmol/L (22-29); CHLORIDE 107 mmol/L (98-107); CREATININE, SERUM 0.62 mg/dL (0.57-1.11); EST GLOMERULAR FILTRATION RATE > 60 ML/MIN (60-); GLUCOSE 234 mg/dL (74-118); POTASSIUM 3.6 mmol/L (3.5-5.1); SODIUM 139 mmol/L (136-145)
[2019-06-22 07:27] LABS: BUN/CREATININE RATIO 8 (6-25)
[2019-06-22] MEDS: METOPROLOL SUCCINATE 25 MG TAB XL PO SCH (09:00)
[2019-06-22] MEDS: INSULIN LISPRO 100 UNIT/1 ML 3ML VIAL SQ SCH ×4 (09:32→21:03)
--- NOTE | 2019-06-22 11:04 | Progress Note ---
DATE: SUBJECTIVE: The patient is seen and evaluated with the nurse in the room. Clinically, no acute distress, sitting on the edge of the bed. REVIEW OF SYSTEMS: The patient states that she thinks she has flatulence, however, no bowel movement since the surgery. Also states that she has no pain and she is very comfortable. No nausea, vomiting, fever, chills, chest pain, shortness of breath, headache, dysuria, or polyuria. PHYSICAL EXAMINATION: VITAL SIGNS: Temperature is 96.2, pulse is 63, respirations 16, and blood pressure 98/55. GENERAL: Alert and oriented, no acute distress. CV: S1 and S2. CHEST: Equal expansion. Clear to auscultation. No acute distress. ABDOMEN: Soft. Hypoactive. Nontender. HEENT: Moist. No pallor. No JVD. EXTREMITIES: Moves all. No acute distress. LABORATORY STUDIES: White count of 13.35 from 8.43, hemoglobin 11.2, and platelet count of 327. Sodium 139, potassium 3.6, and creatinine 0.62. Serology; COVID-19 PCR not detected on 06/19/2019. Urine culture showed E. coli sensitive to Rocephin. RADIOLOGY STUDIES: No new radiology studies available. ASSESSMENT AND PLAN: 1. Acute sigmoid diverticulitis with abscess. 2. Colovesical fistula. 3. Urinary tract infection. 4. Dementia. 5. Hypertension. 6. The patient is status post surgery, remains n.p.o. The patient to be seen by General Surgery and feeding to be managed by General Surgery when to be started. Do not have new cultures available. Clinically, no acute distress. Encourage ambulation and out of bed early. Continue with antibiotic at this point and monitor the patient clinically and follow with the labs. Currently on Rocephin and Flagyl. White counts went up today. We will recheck for tomorrow. Discussed with Dr. Gavin in details. Please refer to chart for more information. Dictated by Florian Dickinson PA-C (Al) Carolyn Gavin MD /MODL /[id number]
[2019-06-22] MEDS: CEFTRIAXONE SOD 2 GM/NS 100 ML 100 ML IV SCH (11:15)
--- NOTE | 2019-06-22 12:35 | Progress Note ---
DATE: 06/22/2019 Cardiology Progress Note SUBJECTIVE: Denies any chest pain or shortness of breath. OBJECTIVE: VITAL SIGNS: Temperature 96.2, heart rate 63, blood pressure 98/55, respiratory rate 16, O2 saturation 98%, BMI 31. GENERAL: In no acute distress. Alert. NECK: No JVD. CHEST: Clear to auscultation. CARDIOVASCULAR: Regular rate and rhythm. Normal S1, S2. No S3 or S4. ABDOMEN: Soft. Bowel sounds positive. EXTREMITIES: No edema. CARDIOVASCULAR MEDICATIONS: Reviewed. Metoprolol succinate 12.5 mg daily, atorvastatin 20 mg at bedtime. STUDIES: Reviewed. Creatinine 0.6. Hemoglobin 11.2, platelets 327, white blood cells 13.3. ASSESSMENT AND PLAN: A 68-year-old woman with rectovesical fistula and abscess with recurrent urinary tract infections, history of hypertension and dyslipidemia and diabetes mellitus, now status post surgical repair by Dr. Boateng and Dr. Taylor. Recommend continue metoprolol and atorvastatin. No immediate cardiovascular postop complications reported. MD ALBINO Meng/LISA /[id number]
[2019-06-22] MEDS: SODIUM CHLORIDE 0.9% 1000ML 1,000 ML IV SCH (15:26)
--- NOTE | 2019-06-22 15:56 | Progress Note ---
DATE: Medicine Progress Note SUBJECTIVE: The patient is doing very well today postoperatively. She is ambulating well. She is now going to be on a clear liquid diet per General Surgery. PHYSICAL EXAMINATION: VITAL SIGNS: Temperature is 96.4, pulse 65, respiratory rate 16, blood pressure is 101/51, and pulse ox is 94%. She is on room air. She is ambulating and doing well. GENERAL: Not in acute distress. Alert and oriented x3. Cooperative on examination. HEENT: Head; normocephalic, atraumatic. Eyes; pupils are equal, round, and reactive to light bilaterally. Extraocular movements intact bilaterally. Throat; no evidence of any erythema or exudates in the posterior pharynx. Has poor dentition. NECK: Supple. Good range of motion. PULMONARY: Clear to auscultation bilaterally. No wheezing, no rales, no rhonchi, no crackles appreciated. CARDIOVASCULAR: Positive S1 and S2. No murmurs, rubs, or gallops appreciated. ABDOMEN: Soft, nondistended, and nontender to palpation. Bowel sounds present. MUSCULOSKELETAL: Strength is 5/5 throughout. No evidence of any muscle deficits on examination. No weakness appreciated. NEUROLOGIC: Cranial nerves 2 through 12 grossly intact. No evidence of any neurological deficits on exam. SKIN: Intact. Warm to touch. Good cap refill. PSYCHIATRIC: Normal affect and mood. EXTREMITIES: No edema. Good range of motion throughout. LABORATORY FINDINGS: Show white count 13, hemoglobin 11, hematocrit is 35.6, and platelets of 327. Chemistry; sodium 139, potassium 3.6, chloride 107, bicarb 26, anion gap of 9.6, glucose is 274, and calcium is 8.1. MICROBIOLOGY: Noted. IMAGING STUDIES: Nothing new. IMPRESSION: 1. Status post sigmoid colon resection. 2. Colovesicular fistula repair performed on 06/21/2019. 3. Type 2 diabetes. 4. Hypertension. PLAN: At this time, the patient is doing extremely well status post sigmoid colon resection as well as a colovesicular repair, all performed on 06/21/2019 by General Surgery and Urology respectively. Continue with IV antibiotics. White count slightly elevated. We are going to repeat in the morning. Continue with antibiotics, managed per ID. She is now going to be on a clear liquid diet as per General Surgery. Encourage ambulation. Monitor very closely. She is on some Toradol for pain p.r.n. as well as pain control. Continue with IV fluids. Monitor very closely. MD NICOL Locke/LISA /[id number]
--- NOTE | 2019-06-22 19:00 | NUR ---
Received bedside report from day nurse. Patient out of bed and ambulating around room, no s/s of distress at this time. Bed locked and in low position, side rails up, call light placed within reach. Patient instructed to call for assistance if needed, verbalized understanding. All safety measures in place. Will continue to monitor.
[2019-06-22] MEDS: ATORVASTATIN 20 MG TAB PO SCH (21:03)
[2019-06-23] VITALS (8 sets, daily range): BP systolic 107–149; BP diastolic 56–79
--- NOTE | 2019-06-23 01:40 | NUR ---
Dr. William Adams here to see patient. No new orders received.
[2019-06-23] MEDS: SODIUM CHLORIDE 0.9% 1000ML 1,000 ML IV SCH (03:48)
[2019-06-23] MEDS: MORPHINE SULFATE 1 MG/ML 30ML PCA IV PRN (03:59)
[2019-06-23] MEDS: METRONIDAZOLE 500MG/NS 100ML 100 ML IV SCH (05:06)
[2019-06-23 06:27] LABS: BASOPHILS % 0.4 % (0.0-1.0); EOSINOPHILS # (AUTO) 0.3 (0.0-0.4); HEMATOCRIT 35.7 % (34.2-44.1); HEMOGLOBIN 11.4 g/dL (12.0-16.0); LYMPHOCYTES # (AUTO) 2.3 (1.0-3.2); LYMPHOCYTES % 24.7 % (18.0-39.1); MEAN CORPUSCULAR HEMOGLOBIN 30.2 pg (28-32); MEAN CORPUSCULAR HGB CONC 31.9 g/dL (31-35); MEAN CORPUSCULAR VOLUME 94.7 fL (81-99); MONOCYTES # (AUTO) 0.7 (0.2-0.8); MONOCYTES % 7.7 % (4.4-11.3); NEUTROPHILS % 63.6 % (38.7-80.0); PLATELET COUNT 327 x10e3/uL (140-360); RED BLOOD COUNT 3.77 x10e6/uL (3.6-5.1); RED CELL DISTRIBUTION WIDTH 14.3 % (11.7-14.4)
[2019-06-23 06:57] LABS: ANION GAP 13.2 mmol/L (8-16); BLOOD UREA NITROGEN < 5 mg/dL (7-26); CARBON DIOXIDE 23 mmol/L (22-29); CHLORIDE 109 mmol/L (98-107); CREATININE, SERUM 0.59 mg/dL (0.57-1.11); EST GLOMERULAR FILTRATION RATE > 60 ML/MIN (60-); GLUCOSE 101 mg/dL (74-118); POTASSIUM 3.2 mmol/L (3.5-5.1); SODIUM 142 mmol/L (136-145)
[2019-06-23 06:58] LABS: BUN/CREATININE RATIO 8 (6-25)
--- NOTE | 2019-06-23 07:07 | NUR ---
Bedside report given to day nurse. Patient in stable condition, no s/s of distress at this time. All safety measures in place.
--- NOTE | 2019-06-23 07:25 | NUR ---
PATIENT IN BED TALKING ON THE PHONE, NO DISTRESS NOTED. SAND HAULER PUMP IN PLACE; MID ABDOMEN WOUND WITH DRESSING DRY AND INTACT. BED IN LOWER POSITION, CALL LIGHT AT REACH.
[2019-06-23] MEDS: INSULIN LISPRO 100 UNIT/1 ML 3ML VIAL SQ SCH ×4 (07:30→20:23)
[2019-06-23] MEDS: METOPROLOL SUCCINATE 25 MG TAB XL PO SCH (09:09)
--- NOTE | 2019-06-23 10:56 | NUR ---
PATIENT IV INFILTRATED, REFUSED A NEW IV TO BE INSERTED. PATIENT DOES NO T A PROCESSOR GRAIN PUMP , NOTIFIED, NEW ORDERS RECEIVED.
--- NOTE | 2019-06-23 12:34 | Progress Note ---
DATE: SUBJECTIVE: The patient is seen and evaluated. Discussed with Dr. Taylor, Urology. Discussed with Dr. Gavin. Discussed with the attending team. REVIEW OF SYSTEMS: No nausea, vomiting, fever, chills, chest pain, shortness of breath. Tolerating liquid diet. The patient is flatulent, but no bowel movement yet. The patient ambulates, has no pain and no complaints. PHYSICAL EXAMINATION: VITAL SIGNS: Temperature is 97.6, pulse is 78, respiration 18, blood pressure 149/65. GENERAL: Alert and oriented, no acute distress. CV: S1, S2. CHEST: Equal expansion. Clear to auscultation. No acute distress. ABDOMEN: Soft. Surgical site with madalyn. No tenderness. No tightness. No drainage. No erythema. Bowel sounds positive. EXTREMITIES: Weak, moves all. No acute distress. LABORATORY STUDIES: White count of 9.37, hemoglobin 11.4, platelet 327. Sodium 142, potassium 3.2, creatinine of 0.59. Serology; COVID-19 PCR not detected on 06/19/2019. MICROBIOLOGY: Urine culture is E coli pansensitive. RADIOLOGY: No new radiology studies available. Please note that the patient's IV access line is kind of irritated and the patient does not want to be started again with needle. ASSESSMENT AND PLAN: 1. Acute sigmoid diverticulitis with abscess. 2. Colovesicular fistula. 3. Urinary tract infection. 4. Hypertension. 5. Dementia. 6. Debility. Tolerating p.o. okay, irritated IV access line. The patient remains on Rocephin and Flagyl. Urology is okay with oral antibiotics as per my discussion with Dr. Taylor. Discussed with Dr. Gavin. Please refer to chart for more information. Thank you for this dictation. Dictated by Florian Dickinson PA-C (Al) Carolyn Gavin MD /MODL /[id number]
[2019-06-23] MEDS ORDERED: POTASSIUM CHLORIDE 20 MEQ TAB CR PO ONE (14:20)
[2019-06-23] MEDS: METRONIDAZOLE 500 MG TAB PO SCH ×2 (14:42→22:16)
[2019-06-23] MEDS: CEPHALEXIN 500 MG CAP PO SCH ×2 (14:42→22:16)
--- NOTE | 2019-06-23 15:38 | NUR ---
PATIENT HAD A BM. MD IN AT THIS TIME TO SEE PATIENT, NEW ORDER RECEIVED.
--- NOTE | 2019-06-23 16:15 | Progress Note ---
DATE: 06/23/2019 SUBJECTIVE: The patient is doing well today with no complaints. She is ambulating with no issues. She is still on a clear liquid diet. She was alert, awake, and oriented during my examination. PHYSICAL EXAMINATION: VITAL SIGNS: Temperature is 98.1, pulse 89, respiratory rate is 20, blood pressure 116/79, and pulse ox is 98% on room air. GENERAL: Not in acute distress. Alert and oriented x3. Cooperative on examination. HEENT: Head; normocephalic, atraumatic. Eyes; pupils are equal, round, and reactive to light bilaterally. Extraocular movements intact bilaterally. Throat; no evidence of erythema or exudates in the posterior pharynx. Has poor dentition. NECK: Supple. Good range of motion. PULMONARY: Clear to auscultation bilaterally. No wheezing, no rales, no rhonchi, no crackles appreciated. CARDIOVASCULAR: Positive S1 and S2. No murmurs, rubs, or gallops appreciated. ABDOMEN: Soft, nondistended, and nontender to palpation. Bowel sounds present. MUSCULOSKELETAL: Strength is 5/5 throughout. No evidence of any muscle deficits on examination. No weakness appreciated. NEUROLOGIC: Alert and oriented x3. SKIN: Intact. Warm to touch. Good cap refill. PSYCHIATRIC: Normal affect and mood. EXTREMITIES: No edema. Good range of motion throughout. LABORATORY DATA: CBC; white count 9.3, hemoglobin 11.4, hematocrit is 35, and platelets of 327. Chemistry; sodium 142, potassium 3.2, chloride 109, bicarb 23, anion gap of 13, BUN is 5, creatinine is 0.59, and calcium is 8. MICROBIOLOGY: Urine cultures were E. coli. IMAGING: None. IMPRESSION: 1. Status post sigmoid colon resection. 2. Colovesicular fistula repair performed on 06/21/2019. 3. Type 2 diabetes. 4. Hypertension. PLAN: At this time, she is doing very well, ambulating with no issues postoperatively. Continue on clear liquid diet as per General Surgery and diet advance as per Surgery. She will continue with the Miguel catheter on discharge. Continue with IV antibiotics. Replace potassium. We can discontinue the IV fluids, as she is eating with no complications. She is on p.o. Keflex now as per the ID recommendations as well as Flagyl. MD NICOL Locke/LISA /[id number]
[2019-06-23] MEDS: HYDROCODONE/APAP 7.5MG-325MG 1 EA TAB PO PRN ×2 (16:20→22:16)
--- NOTE | 2019-06-23 16:25 | NUR ---
Nutrition Intervention Note RD Recommendation(s) for Physician: -Recommend advancing to GI soft diet when medically appropriate -Ensure Clear BID for added nutrition Plan of Care: RD following, monitoring for tolerance and adequacy Nutrition reason for involvement: Length of stay RD Assessment (06/23/19) Pt is a 68 year old female admitted with diverticulitis. Pt had a sigmoid colon resection and colovesicular repair on 06/20. Pt is currently on clear liquids and is tolerating the diet. Pt reports she was eating <50% of meals for 1 week prior to admission and had lost weight in the past 3 weeks. Pt mentioned she weighed 159 lbs 3 weeks ago and currently has a weight of 154 lbs in chart. This would be a 3% weight loss within a month which is considered to be nonsignificant weight loss. No N/V reported. Will continue to monitor unless consulted sooner. Principal Problems/Diagnoses: diverticulitis PMH: Hypertension, hyperlipidemia, type 2 diabetes, morbidly obese. I/O: 240/800 GI: last recorded BM 06/20, soft, nontender abdomen Skin: abdominal surgical incision Labs: (06/22) K 3.2, Cl 109, BUN <5, Ca 8.0 Meds: flagyl, metoprolol, Lipitor, zofran Ht: 59 inches Wt: 154 lbs BMI: 31.2 kg/m2 IBW: 98 lbs Malnutrition Evaluation (06/23/19) The patient does not meet criteria for a specified degree of malnutrition at this time. Will re-evaluate at follow-up as appropriate. Energy intake: <50% of estimated energy requirements for >5 days Weight loss: 3% weight loss within 1 month nonsignificant weight loss Fat loss: no loss per observation Muscle loss: no loss per observation Supporting Evidence: Fluid accumulation: no edema per MD note Functional Status: unable to evaluate Nutrition Prescription (Diet Order): clear liquids Estimated Nutritional Needs: 980-1114 calories/day (22-25 kcal/kg IBW) 67-89 g protein/day (1.5-2 g pro/kg IBW) Diet Adequacy: Not meeting calorie needs, Not meeting protein needs Tolerance: Tolerating PO Diet Education Needs Assessment: Diet education indicated and patient agreeable. Learner(s): pt Barriers: no barriers identified Cultural/Language Modifications: no cultural/language modifications Readiness: eager Method: explanation/discussion/handout Topics: low fiber diet Understanding/Compliance: pt verbalized understanding Nutrition Care Level: moderate Nutrition Diagnosis: Inadequate energy intake related to decreased ability to consume sufficient energy as evidenced by insufficient energy intake from diet compared to needs. Goal: Patient will meet 75-100% of estimated needs by follow up Progress: N/A Interventions: -fiber modified diet, Commercial beverage, Collaboration with other providers Monitoring/Evaluation: -Total energy intake, Total protein intake, Modified diet, Liquid supplement, Weight change, Level of knowledge Signed: Jennifer Sim RD, LD
[2019-06-23] MEDS ORDERED: CIPROFLOXACIN 500 MG TAB PO SCH (17:00)
--- NOTE | 2019-06-23 19:05 | NUR ---
Pt visited in room during nursing rounds. Patient alert and oriented x3. Ambulatory in room prn. No IV access per MD order. Pt on PO meds at this time. S/P sigmoid colon resection on 06/21/19 with madalyn intact on midline abd incision. Call leo within reach. Will monitor closely.
[2019-06-23] MEDS: ATORVASTATIN 20 MG TAB PO SCH (20:23)
--- NOTE | 2019-06-23 20:26 | Progress Note ---
DATE: Cardiology Progress Note SUBJECTIVE: Denies any chest pain or shortness of breath, increased edema to right upper extremity at the site of IV without any erythema or suppuration, concerning for infiltrative vein. OBJECTIVE: VITAL SIGNS: Temperature 97.6, heart rate 78, blood pressure 149/65, respiratory rate 18, O2 saturation 97% BMI 31. GENERAL: In no acute distress, alert. NECK: No JVD. CHEST: Clear to auscultation. CARDIOVASCULAR: Regular rate and rhythm. Normal S1, S2. No S3 or S4. ABDOMEN: Soft. Bowel sounds positive. EXTREMITIES: Localized edema to right upper extremity at the site of IV, fluids discontinued. Nurse informed to assess for possible infiltrated IV. CARDIOVASCULAR MEDICATION: Reviewed. Metoprolol succinate 12.5 mg daily, atorvastatin 20 mg at bedtime. STUDIES: Reviewed. potassium 3.2, creatinine 0.59. White blood cells 9.3, hemoglobin 11.4, platelets 327. AST 11, ALT 6, alkaline phosphatase 41. 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 RECOMMENDATIONS: 1. Continue current cardiovascular medications. 2. Monitor blood pressure, can resume JONNA inhibitor starting tomorrow. 3. Pain control as needed. 4. Assess for infiltrated vein and consider alternative access for IV. MD ALBINO Meng/LISA /[id number]
--- NOTE | 2019-06-23 23:03 | NUR ---
Dr. George Adams came and visited pt in room. MD aware of pt condition.
[2019-06-24] VITALS: BP 114/53
[2019-06-24 04:00] VITALS: BP 111/57
[2019-06-24 06:12] LABS: BASOPHILS % 0.5 % (0.0-1.0); EOSINOPHILS # (AUTO) 0.3 (0.0-0.4); EOSINOPHILS % 5.1 % (0.0-6.0); HEMATOCRIT 32.2 % (34.2-44.1); HEMOGLOBIN 10.3 g/dL (12.0-16.0); LYMPHOCYTES # (AUTO) 1.5 (1.0-3.2); LYMPHOCYTES % 22.9 % (18.0-39.1); MEAN CORPUSCULAR HEMOGLOBIN 29.6 pg (28-32); MEAN CORPUSCULAR VOLUME 92.5 fL (81-99); MONOCYTES # (AUTO) 0.6 (0.2-0.8); MONOCYTES % 9.8 % (4.4-11.3); NEUTROPHILS % 61.2 % (38.7-80.0); PLATELET COUNT 315 x10e3/uL (140-360); RED BLOOD COUNT 3.48 x10e6/uL (3.6-5.1); RED CELL DISTRIBUTION WIDTH 14.4 % (11.7-14.4)
[2019-06-24] MEDS: METRONIDAZOLE 500 MG TAB PO SCH (06:12)
[2019-06-24] MEDS: CEPHALEXIN 500 MG CAP PO SCH (06:12)
[2019-06-24 06:38] LABS: ANION GAP 9.2 mmol/L (8-16); BLOOD UREA NITROGEN < 5 mg/dL (7-26); CALCIUM 7.9 mg/dL (8.4-10.2); CARBON DIOXIDE 26 mmol/L (22-29); CHLORIDE 109 mmol/L (98-107); CREATININE, SERUM 0.56 mg/dL (0.57-1.11); EST GLOMERULAR FILTRATION RATE > 60 ML/MIN (60-); GLUCOSE 107 mg/dL (74-118); POTASSIUM 3.2 mmol/L (3.5-5.1); SODIUM 141 mmol/L (136-145)
[2019-06-24 06:39] LABS: BUN/CREATININE RATIO 9 (6-25)
--- NOTE | 2019-06-24 07:23 | NUR ---
PATIENT AMBULATED TO [facility] AND BACK TO BED. DRESSING DRY AND INTACT TO MID ABDOMEN. BED IN LOWER POSITION, CALL LIGHT AT REACH.
[2019-06-24 07:25] VITALS: BP 122/60
[2019-06-24] MEDS: INSULIN LISPRO 100 UNIT/1 ML 3ML VIAL SQ SCH ×2 (07:30→11:30)
[2019-06-24 08:04] VITALS: BP 122/60
[2019-06-24] MEDS: HYDROCODONE/APAP 7.5MG-325MG 1 EA TAB PO PRN (08:30)
[2019-06-24] MEDS: METOPROLOL SUCCINATE 25 MG TAB XL PO SCH (09:29)
--- NOTE | 2019-06-24 11:22 | NUR ---
PATIENT AMBULATING BY SELF IN HALLWAY, NO COMPLAIN VOICED.
[2019-06-24 11:24] VITALS: BP 117/57
--- NOTE | 2019-06-24 11:53 | Progress Note ---
DATE: 06/24/2019 Cardiology Progress Note. SUBJECTIVE: Denies chest pain, shortness of breath. Doing well postoperatively. OBJECTIVE: VITAL SIGNS: Temperature 98.4, heart rate 82, blood pressure 122/60, respiratory rate 19, O2 saturation 99%. BMI 31. GENERAL: In no acute distress, alert. NECK: No JVD. CHEST: Clear to auscultation. CARDIOVASCULAR: Regular rate and rhythm. Normal S1, S2. No S3 or S4. ABDOMEN: Soft. Bowel sounds positive. EXTREMITIES: No edema. CARDIOVASCULAR MEDICATIONS: Reviewed: 1. Metoprolol succinate 12.5 mg daily. 2. Atorvastatin 20 mg at bedtime. STUDIES: Reviewed, creatinine 0.5, potassium white blood cell 6.5, and platelets 315. ASSESSMENT AND PLAN: A 68-year-old woman with anemia and recto-vesicular fistula, now status post repair abscess drainage, hypertension, dyslipidemia. Recommend continue current cardiovascular medications. Okay to discharge from a cardiovascular standpoint with outpatient followup advised in 6-8 weeks. MD ALBINO Meng/JOSEL /[id number]
--- NOTE | 2019-06-24 12:03 | Progress Note ---
DATE: SUBJECTIVE: The patient is seen and evaluated. Available labs and notes reviewed. REVIEW OF SYSTEMS: No nausea, vomiting, fever, chills, chest pain, or shortness of breath. Tolerates oral intake. Has bowel movement. No abdominal pain. Ambulates frequently. PHYSICAL EXAMINATION: VITAL SIGNS: Temperature 98.4, pulse is 82, respiration 19, and blood pressure 122/60. GENERAL: Alert and oriented, in no acute distress, comfortable in bed. CV: S1 and S2. CHEST: Equal expansion. Clear to auscultation. No acute distress. ABDOMEN: Soft and nontender. No distention. HEENT: Moist. No pallor. No JVD. EXTREMITIES: Weak. Moves all. MEDICATIONS: Medication list reviewed and as far as Infectious Disease point of view, the patient is on Keflex and Flagyl, tolerating p.o. medications. LABORATORY STUDIES: White count of 6.52, hemoglobin 10.3, and platelet 315. Sodium 141, potassium 3.2, and creatinine 0.56. MICROBIOLOGY: No new microbiology studies available. Pathology showed sample from colon, sigmoid, resection showed diverticulitis with transmural rupture associated mural and pericolic abscesses, extrusion of intestinal content with foreign body giant cell reaction. RADIOLOGY: No new radiology studies available. ASSESSMENT AND PLAN: 1. Acute sigmoid diverticulitis with abscess. 2. Colovesicular fistula. 3. Urinary tract infection. 4. Hypertension. 5. Obesity. 6. Debility. 7. Continue with oral antibiotics at this point. The patient tolerates feeding and started to have bowel movement, clinically looks better, ambulates frequently. There is a prescription in chart for Keflex and Flagyl for 2 weeks. Further management of this patient is based on daily findings on laboratory and physical examination. Refer to chart for more information. Dictated by Florian Dickinson PA-C (Al) MD SUSANA Foy/LISA /[id number]
[2019-06-24] MEDS ORDERED: POTASSIUM BICARBONATE/CIT AC 20 MEQ TABLET.EFF PO ONE (13:20)
[2019-06-24] MEDS ORDERED: KEFLEX500 MG PO (13:49)
[2019-06-24] MEDS ORDERED: FLAGYL250 MG (13:50)
--- NOTE | 2019-06-24 15:00 | NUR ---
PATIENT DISCHARGED HOME. DISCHARGE INSTRUCTIONS, PRESCRIPTIONS, AND FOLLOW UP GIVEN TO PATIENT, SHE VERBALIZED UNDERSTANDING. ALL PERSONAL ITEMS TAKEN WITH PATIENT. LEFT UNIT PER WHEEL CHAIR TO FRONT LOBBY IN STABLE CONDITION.
--- NOTE | 2019-06-25 04:16 | Discharge Summary ---
FINAL DISCHARGE DIAGNOSES: 1. Acute diverticulitis with colovesicular fistula, status post sigmoid colon resection and colovesicular fistula repair all performed on 06/21/2019 by General Surgery and Urology respectively. 2. Type 2 diabetes. 3. Hypertension. CONSULTANTS: ID, Urology, and General Surgery. PHYSICAL EXAMINATION: VITAL SIGNS: Temperature 98, pulse 80, respiratory rate is 16, blood pressure 117/57, pulse ox 100% on room air. LABORATORY DATA: Labs show white count 6.2, hemoglobin 10.3, hematocrit 32, platelets of 315. Chemistry; sodium 141, potassium 3.2 replaced, chloride 109, bicarb 26, anion gap of 9.2, BUN is 5, creatinine is 0.56, and calcium is 7.9, glucose 107. LFTs are within normal range. Albumin 2.7 noted. Urinalysis consistent with UTI. Urine culture was positive for UTI and on IV antibiotics. Coronavirus PCR negative. IMAGING STUDIES: CT abdomen and pelvis shows consistency with sigmoid diverticulitis with a 1.3 and 1.5 fluid and gas collection, and region of thickened small wall may represent a small intramural abscess, but otherwise suboptimally evaluated due to lack of oral contrast administration. There is presumably a reactive wall thickening of the left posterior lateral bladder wall consistent with concerns of introduced air, cystitis or colovesicular fistula. HOSPITAL COURSE: A 68-year-old female, who came into the ED with complaints of left lower quadrant abdominal pain, nausea, vomiting, decreased oral intake, came in for further evaluation and management. Imaging studies, CT abdomen, and pelvis consistent with a sigmoid diverticulitis as well as a colovesicular fistula. General Surgery and ID were consulted. The patient maintained on broad-spectrum IV antibiotics. After further review with General Surgery, it was felt the patient likely has a colovesicular fistula in which Urology was consulted. The patient underwent cardiac clearance by Cardiology to undergo surgery. The patient was cleared for surgery. The patient underwent surgery on 06/21/2019, status post sigmoid colon resection and colovesicular repair, all performed respectively by General Surgery and Urology. The patient had a Miguel postoperatively. She was started on a clear liquid diet, advanced to regular, which she tolerated well. She was ambulating with no issues. Pain was well controlled. I spoke with Urology. The patient is cleared for discharge from Urology with a Miguel catheter with followup in 10-14 days. As per General Surgery, no further workup needed. Needs followup in 7 to 10 days to evaluate for the incision and staple removal. I spoke with ID, p.o. antibiotics have been written and placed in the chart with p.o. Keflex and Flagyl for 2 weeks. The patient has been cleared by all consultants. On the day of discharge, vital signs were stable, labs reviewed and stable. The patient is seen and evaluated and examined thoroughly on the day of discharge. No other complaints. The patient verbalized understanding and agrees to plan of care to follow up as an outpatient with the PCP in 1 week and the rest of the consults described above. Urology and General Surgery in 7-14 days. ID in 2 weeks' time. MEDICATIONS: See med reconciliation form. DISPOSITION: Home. CONDITION: Stable. DIET: Heart healthy. In the event of worsening symptoms, the patient was advised to come back to the ED for further evaluation. Discharge summary took greater than 35 minutes. MD NICOL Locke/JOSEL /[id number]
== END 2019-06-24 14:34 | disposition home or self-care (01) | DRG 330 ==
LOC: ER 19:52 → ERHOLD 23:27 → MED/SURG3 06-17 01:03 → OBSVTOIN 06-17 13:52
PROVIDERS: ADMIT Internal Medicine; ATTEND Internal Medicine
PROC: BT1FYZZ Fluoroscopy of Left Kidney, Ureter and Bladder using Other Contrast (ICD-10-PCS; 2019-06-21)
PROC: BT1FYZZ Fluoroscopy of Left Kidney, Ureter and Bladder using Other Contrast (ICD-10-PCS; 2019-06-21)
PROC: 0T778DZ Dilation of Left Ureter with Intraluminal Device, Via Natural or Artificial Opening Endoscopic (ICD-10-PCS; principal; 2019-06-21 13:08)
PROC: 0DTN0ZZ Resection of Sigmoid Colon, Open Approach (ICD-10-PCS; 2019-06-21 13:08)
DX: K57.20 Diverticulitis of large intestine with perforation and abscess without bleeding (principal); N32.1 Vesicointestinal fistula; N39.0 Urinary tract infection, site not specified; E11.9 Type 2 diabetes mellitus without complications; I10 Essential (primary) hypertension; D72.829 Elevated white blood cell count, unspecified; R31.29 Other microscopic hematuria; E78.5 Hyperlipidemia, unspecified; D64.9 Anemia, unspecified; E66.9 Obesity, unspecified; Z68.31 Body mass index [BMI] 31.0-31.9, adult; N39.46 Mixed incontinence; E83.51 Hypocalcemia; B96.20 Unspecified Escherichia coli [E. coli] as the cause of diseases classified elsewhere
CPT/HCPCS: 36415; 74177; 74420; 80048; 80053; 81001; 82948; 85025; 87086; 87186; 87635; 88307; 93005; 93306; 96361; 96372; 99284; C1758; G0378; J0696; J2001; J2250; J2270; J2405; J2710; J3010; J7030; Q9967

== ENCOUNTER 2020-02-20 10:08 | Inpatient (IN) | payer MEDICARE ==
[~2020-02-20] VITALS: Ht 149.9 cm; Wt 70.8 kg
[~2020-02-20 10:08] MED LIST: ATORVASTATIN CA20 MG PO; FLAGYL250 MG; GLUCOPHAGE1000 MG PO; KEFLEX500 MG PO; LEVAQUIN500 MG PO; LEVOFLOXACIN250 MG PO; METFORMIN HCL500 M1 PO; METFORMIN HCL500 MG PO; METRONIDAZOLE500 MG PO; PIOGLITAZONE HC15 MG PO; PIOGLITAZONE HC45 MG PO; VASOTEC10 M1 PO
[2020-02-20] MEDS ORDERED: ONDANSETRON HCL INJ 2MG/ML 2ML 2 MG/ML VIAL IV STA (10:11)
[2020-02-20] MEDS ORDERED: MORPHINE SULFATE INJ 4 MG/ML INJ 1ML IV PRN (10:15)
[2020-02-20] MEDS ORDERED: SODIUM CHLORIDE 0.9% 1000ML 1,000 ML IV SCH ×2 (10:15→13:15)
[2020-02-20] MEDS ORDERED: DIATRIZOATE MEGL/DIATRIZOA SOD 30 ML BTL PO ONE (10:33)
[2020-02-20 10:50] LABS: BASOPHILS # (AUTO) 0.1 (0.0-0.1); BASOPHILS % 0.4 % (0.0-1.0); EOSINOPHILS # (AUTO) 0.1 (0.0-0.4); EOSINOPHILS % 0.5 % (0.0-6.0); HEMATOCRIT 45.1 % (34.2-44.1); HEMOGLOBIN 15.3 g/dL (12.0-16.0); LYMPHOCYTES # (AUTO) 1.6 (1.0-3.2); LYMPHOCYTES % 9.1 % (18.0-39.1); MEAN CORPUSCULAR HEMOGLOBIN 30.2 pg (28-32); MEAN CORPUSCULAR HGB CONC 33.9 g/dL (31-35); MEAN CORPUSCULAR VOLUME 89.1 fL (81-99); MONOCYTES # (AUTO) 0.8 (0.2-0.8); MONOCYTES % 4.7 % (4.4-11.3); NEUTROPHILS # (AUTO) 14.8 (2.1-6.9); NEUTROPHILS % 84.7 % (38.7-80.0); PLATELET COUNT 381 x10e3/uL (140-360); RED BLOOD COUNT 5.06 x10e6/uL (3.6-5.1); RED CELL DISTRIBUTION WIDTH 12.1 % (11.7-14.4)
[2020-02-20 10:54] LABS: CLARITY,URINE HAZY (CLEAR); COLOR,URINE YELLOW (YELLOW); LEUKOCYTE ESTERASE ,URINE NEGATIVE (NEGATIVE)
[2020-02-20 10:55] LABS: KETONES,URINE 2+ (NEGATIVE); NITRITE,URINE NEGATIVE (NEGATIVE); PROTEIN,URINE DIPSTICK 2+ (NEGATIVE); URINE UROBILINOGEN 0.2 mg/dL (0.2 - 1)
[2020-02-20 11:07] LABS: WBC,URINE (MAN) 0-5 /HPF (0-5)
[2020-02-20 11:08] LABS: BACTERIA,URINE MODERATE /HPF
[2020-02-20 11:14] LABS: ALANINE AMINOTRANSFERASE 12 IU/L (0-55); ALBUMIN 4.2 g/dL (3.5-5.0); ALBUMIN/GLOBULIN RATIO 1.1 (0.8-2.0); ALKALINE PHOSPHATASE 57 IU/L (40-150); ANION GAP 17.2 mmol/L (8-16); BLOOD UREA NITROGEN 14 mg/dL (7-26); BUN/CREATININE RATIO 18 (6-25); CALCIUM 9.7 mg/dL (8.4-10.2); CARBON DIOXIDE 28 mmol/L (22-29); CHLORIDE 92 mmol/L (98-107); CREATINE KINASE 16 IU/L (29-168); CREATININE, SERUM 0.78 mg/dL (0.57-1.11); EST GLOMERULAR FILTRATION RATE > 60 ML/MIN (60-); GLUCOSE 201 mg/dL (74-118); POTASSIUM 4.2 mmol/L (3.5-5.1); SODIUM 133 mmol/L (136-145)
[2020-02-20] MEDS ORDERED: SODIUM CHLORIDE 0.9% 50ML 50 ML ONE (11:59)
[2020-02-20] MEDS ORDERED: IOPAMIDOL 370 MG/ML 200 ML INFUS..BTL INJ ONE (11:59)
[2020-02-20] MEDS ORDERED: PIPER-TAZ 3.375 GM 50 ML IV STA (12:16)
[2020-02-20 12:21] LABS: CREATINE KINASE MB < 1.00 ng/mL (0-4.3)
[2020-02-20] MEDS ORDERED: MORPHINE SULFATE INJ 2 MG/ML SYR IV PRN ×2 (13:15→14:00)
[2020-02-20] MEDS ORDERED: CHLORASEPTIC SPRAY 177 ML BTL MM PRN (13:45)
[2020-02-20] MEDS ORDERED: ONDANSETRON HCL INJ 2MG/ML 2ML 2 MG/ML VIAL IV PRN (13:45)
[2020-02-20] MEDS ORDERED: DIPHENHYDRAMINE HCL 25 MG CAP PO PRN (13:45)
[2020-02-20] MEDS ORDERED: DOCUSATE SODIUM 100 MG CAP PO PRN (13:45)
[2020-02-20] MEDS ORDERED: GUAIFENESIN/CODEINE 10 ML CUP PO PRN (13:45)
[2020-02-20] MEDS ORDERED: ACETAMINOPHEN 325 MG TAB PO PRN (13:45)
[2020-02-20] MEDS ORDERED: DEXTROSE 50% SYRINGE 50 ML IV PRN ×2 (13:45)
[2020-02-20] MEDS ORDERED: HYDRALAZINE HCL 20 MG/ML VIAL IV PRN (13:45)
[2020-02-20] MEDS ORDERED: ALBUTEROL/IPRATROPIUM 3 ML NEB NEB PRN (13:45)
[2020-02-20] MEDS ORDERED: POLYETHYLENE GLYCOL 3350 17 GM PACK PO PRN (13:45)
[2020-02-20] MEDS ORDERED: MELATONIN 5 MG TABLET PO PRN (13:45)
[2020-02-20] MEDS ORDERED: BENZONATATE 100 MG CAP PO PRN (13:45)
[2020-02-20] MEDS ORDERED: SIMETHICONE 80 MG CHEW PO PRN (13:45)
[2020-02-20] MEDS: SODIUM CHLORIDE 0.9% 250ML IRRIG IR SCH ×3 (14:22→21:15)
[2020-02-20] MEDS: METOCLOPRAMIDE HCL 10 MG/2ML VIAL IV SCH ×2 (14:45→22:00)
[2020-02-20 15:55] VITALS: BP 124/73
[2020-02-20] MEDS: PANTOPRAZOLE 40 MG 10ML VIAL IV SCH (17:00)
[2020-02-20] MEDS: DEXTROSE 5%/0.9% SOD CHL 1,000 ML IV SCH (17:21)
[2020-02-20 17:33] VITALS: BP 124/73
[2020-02-20] MEDS: ENOXAPARIN SOD INJ 40 MG/0.4 ML SYR SC SCH (18:06)
[2020-02-20 20:00] VITALS: BP 116/59
[2020-02-20 23:02] VITALS: BP 116/59
[2020-02-21] VITALS (7 sets, daily range): BP systolic 104–127; BP diastolic 54–64
[2020-02-21] MEDS: DEXTROSE 5%/0.9% SOD CHL 1,000 ML IV SCH ×3 (01:00→08:49)
[2020-02-21] MEDS: SODIUM CHLORIDE 0.9% 250ML IRRIG IR SCH ×6 (01:09→21:12)
[2020-02-21] MEDS: METOCLOPRAMIDE HCL 10 MG/2ML VIAL IV SCH ×3 (05:46→22:00)
[2020-02-21 06:20] LABS: BASOPHILS # (AUTO) 0.1 (0.0-0.1); BASOPHILS % 0.5 % (0.0-1.0); EOSINOPHILS # (AUTO) 0.7 (0.0-0.4); HEMATOCRIT 39.1 % (34.2-44.1); HEMOGLOBIN 13.2 g/dL (12.0-16.0); LYMPHOCYTES # (AUTO) 1.4 (1.0-3.2); LYMPHOCYTES % 9.9 % (18.0-39.1); MEAN CORPUSCULAR HEMOGLOBIN 30.6 pg (28-32); MEAN CORPUSCULAR HGB CONC 33.8 g/dL (31-35); MEAN CORPUSCULAR VOLUME 90.5 fL (81-99); MONOCYTES # (AUTO) 1.2 (0.2-0.8); MONOCYTES % 8.2 % (4.4-11.3); NEUTROPHILS # (AUTO) 10.8 (2.1-6.9); NEUTROPHILS % 76.1 % (38.7-80.0); PLATELET COUNT 291 x10e3/uL (140-360); RED BLOOD COUNT 4.32 x10e6/uL (3.6-5.1); RED CELL DISTRIBUTION WIDTH 12.2 % (11.7-14.4)
[2020-02-21 07:04] LABS: ALANINE AMINOTRANSFERASE 9 IU/L (0-55); ALBUMIN/GLOBULIN RATIO 1.1 (0.8-2.0); ALKALINE PHOSPHATASE 43 IU/L (40-150); ANION GAP 12.5 mmol/L (8-16); BLOOD UREA NITROGEN 11 mg/dL (7-26); BUN/CREATININE RATIO 16 (6-25); CARBON DIOXIDE 29 mmol/L (22-29); CHLORIDE 96 mmol/L (98-107); CREATININE, SERUM 0.67 mg/dL (0.57-1.11); EST GLOMERULAR FILTRATION RATE > 60 ML/MIN (60-); GLUCOSE 247 mg/dL (74-118); MAGNESIUM 1.8 MG/DL (1.3-2.1); POTASSIUM 3.5 mmol/L (3.5-5.1); SODIUM 134 mmol/L (136-145)
[2020-02-21 07:06] LABS: ALBUMIN 3.2 g/dL (3.5-5.0); CALCIUM 8.2 mg/dL (8.4-10.2)
[2020-02-21 07:13] LABS: PHOSPHORUS 2.5 MG/DL (2.3-4.7)
[2020-02-21] MEDS: PANTOPRAZOLE 40 MG 10ML VIAL IV SCH ×2 (08:52→16:35)
[2020-02-21] MEDS: ENOXAPARIN SOD INJ 40 MG/0.4 ML SYR SC SCH (16:35)
[2020-02-21] MEDS ORDERED: PERIPHERAL TPN FORMULA 1 BAG IV SCH (20:00)
[2020-02-22] VITALS (7 sets, daily range): BP systolic 114–141; BP diastolic 56–90
[2020-02-22] MEDS: SODIUM CHLORIDE 0.9% 250ML IRRIG IR SCH ×3 (01:15→09:22)
[2020-02-22] MEDS: METOCLOPRAMIDE HCL 10 MG/2ML VIAL IV SCH ×3 (05:30→22:00)
[2020-02-22] MEDS: PANTOPRAZOLE 40 MG 10ML VIAL IV SCH ×2 (08:16→17:49)
[2020-02-22 08:18] LABS: BASOPHILS % 0.3 % (0.0-1.0); EOSINOPHILS # (AUTO) 0.5 (0.0-0.4); EOSINOPHILS % 3.4 % (0.0-6.0); HEMATOCRIT 38.6 % (34.2-44.1); HEMOGLOBIN 13.3 g/dL (12.0-16.0); LYMPHOCYTES # (AUTO) 1.7 (1.0-3.2); MEAN CORPUSCULAR HEMOGLOBIN 30.9 pg (28-32); MEAN CORPUSCULAR HGB CONC 34.5 g/dL (31-35); MEAN CORPUSCULAR VOLUME 89.8 fL (81-99); MONOCYTES % 7.2 % (4.4-11.3); NEUTROPHILS # (AUTO) 10.7 (2.1-6.9); NEUTROPHILS % 76.7 % (38.7-80.0); PLATELET COUNT 302 x10e3/uL (140-360); RED CELL DISTRIBUTION WIDTH 12.1 % (11.7-14.4)
[2020-02-22 08:33] LABS: BLOOD UREA NITROGEN 12 mg/dL (7-26); BUN/CREATININE RATIO 20 (6-25); CALCIUM 8.1 mg/dL (8.4-10.2); CARBON DIOXIDE 22 mmol/L (22-29); CHLORIDE 103 mmol/L (98-107); CREATININE, SERUM 0.61 mg/dL (0.57-1.11); EST GLOMERULAR FILTRATION RATE > 60 ML/MIN (60-); GLUCOSE 223 mg/dL (74-118); SODIUM 134 mmol/L (136-145)
[2020-02-22] MEDS ORDERED: SODIUM CHLORIDE 0.9% 250ML IRRIG IR SCH (09:15)
[2020-02-22] MEDS ORDERED: DEXTROSE 50% SYRINGE 50 ML IV PRN (15:15)
[2020-02-22] MEDS: INSULIN LISPRO 100 UNIT/1 ML 3ML VIAL SQ SCH ×2 (16:30→21:00)
[2020-02-22] MEDS: ENOXAPARIN SOD INJ 40 MG/0.4 ML SYR SC SCH (16:56)
[2020-02-22] MEDS ORDERED: ATORVASTATIN 20 MG TAB PO SCH (21:00)
[2020-02-23] VITALS: BP 121/61
[2020-02-23 04:00] VITALS: BP 120/56
[2020-02-23 05:36] LABS: BASOPHILS % 0.3 % (0.0-1.0); EOSINOPHILS # (AUTO) 0.5 (0.0-0.4); EOSINOPHILS % 4.1 % (0.0-6.0); HEMATOCRIT 36.6 % (34.2-44.1); HEMOGLOBIN 12.6 g/dL (12.0-16.0); LYMPHOCYTES # (AUTO) 1.5 (1.0-3.2); LYMPHOCYTES % 11.7 % (18.0-39.1); MEAN CORPUSCULAR HEMOGLOBIN 30.9 pg (28-32); MEAN CORPUSCULAR HGB CONC 34.4 g/dL (31-35); MEAN CORPUSCULAR VOLUME 89.7 fL (81-99); MONOCYTES % 7.5 % (4.4-11.3); NEUTROPHILS # (AUTO) 9.8 (2.1-6.9); NEUTROPHILS % 75.9 % (38.7-80.0); PLATELET COUNT 260 x10e3/uL (140-360); RED BLOOD COUNT 4.08 x10e6/uL (3.6-5.1); RED CELL DISTRIBUTION WIDTH 12.1 % (11.7-14.4)
[2020-02-23 06:00] LABS: ANION GAP 11.9 mmol/L (8-16); BLOOD UREA NITROGEN 11 mg/dL (7-26); BUN/CREATININE RATIO 18 (6-25); CALCIUM 7.6 mg/dL (8.4-10.2); CARBON DIOXIDE 21 mmol/L (22-29); CHLORIDE 104 mmol/L (98-107); EST GLOMERULAR FILTRATION RATE > 60 ML/MIN (60-); GLUCOSE 170 mg/dL (74-118); POTASSIUM 3.9 mmol/L (3.5-5.1); SODIUM 133 mmol/L (136-145)
[2020-02-23] MEDS: METOCLOPRAMIDE HCL 10 MG/2ML VIAL IV SCH ×2 (06:00→14:00)
[2020-02-23 07:39] VITALS: BP 118/63
[2020-02-23 08:24] VITALS: BP 118/63
[2020-02-23] MEDS: INSULIN LISPRO 100 UNIT/1 ML 3ML VIAL SQ SCH ×3 (09:00→17:18)
[2020-02-23] MEDS ORDERED: ENALAPRIL MALEATE 10 MG TAB PO SCH (09:00)
[2020-02-23] MEDS: PANTOPRAZOLE 40 MG 10ML VIAL IV SCH ×2 (09:56→17:00)
[2020-02-23 11:43] VITALS: BP 123/70
[2020-02-23 15:35] VITALS: BP 109/83
[2020-02-23 16:28] LABS: HEMATOCRIT 39.7 % (34.2-44.1); HEMOGLOBIN 13.6 g/dL (12.0-16.0); MEAN CORPUSCULAR HEMOGLOBIN 30.4 pg (28-32); MEAN CORPUSCULAR VOLUME 88.8 fL (81-99); RED BLOOD COUNT 4.47 x10e6/uL (3.6-5.1)
[2020-02-23 16:29] LABS: BASOPHILS % 0.3 % (0.0-1.0); EOSINOPHILS # (AUTO) 0.5 (0.0-0.4); EOSINOPHILS % 4.8 % (0.0-6.0); LYMPHOCYTES # (AUTO) 1.7 (1.0-3.2); MEAN CORPUSCULAR HGB CONC 34.3 g/dL (31-35); MONOCYTES # (AUTO) 0.7 (0.2-0.8); MONOCYTES % 6.7 % (4.4-11.3); NEUTROPHILS # (AUTO) 7.8 (2.1-6.9); NEUTROPHILS % 71.8 % (38.7-80.0); PLATELET COUNT 300 x10e3/uL (140-360); RED CELL DISTRIBUTION WIDTH 12.2 % (11.7-14.4)
[2020-02-23] MEDS: ENOXAPARIN SOD INJ 40 MG/0.4 ML SYR SC SCH (17:00)
== END 2020-02-23 17:20 | disposition home or self-care (01) | DRG 390 ==
LOC: ER 10:35 → ERHOLD 13:21 → MED/SURG 15:13
PROVIDERS: ADMIT Internal Medicine; ATTEND Internal Medicine
DX: K56.609 Unspecified intestinal obstruction, unspecified as to partial versus complete obstruction (principal); E86.0 Dehydration; E11.9 Type 2 diabetes mellitus without complications; K56.50 Intestinal adhesions [bands], unspecified as to partial versus complete obstruction; Z20.822 Contact with and (suspected) exposure to COVID-19; Z90.49 Acquired absence of other specified parts of digestive tract; I10 Essential (primary) hypertension; E78.00 Pure hypercholesterolemia, unspecified
CPT/HCPCS: 36415; 71045; 74018; 74177; 80048; 80053; 81001; 82550; 82553; 82948; 83605; 83690; 83735; 84100; 84484; 85025; 87040; 99284; J1650; J2270; J2405; J2543; J2765; J7030; J7042; Q9967; U0002